=== PATIENT | female | born 1970 | race Caucasian/White ===

== ENCOUNTER 2017-07-06 17:45 | Emergency (ER) | payer OTHER, SELFPAY ==
[2017-07-06 17:48] VITALS: BP 151/93; PULSE 67; RESP 18; TEMP 36.6; O2SAT 100; BMI 26.6
--- NOTE | 2017-07-06 18:35 | RAD_ITS ---
STUDY: X-RAY - RIGHT KNEE REASON FOR EXAM: Female, 47 years old. Pain TECHNIQUE: 4 view(s) of the knee. COMPARISON: 03/05/16. FINDINGS: Knee prothesis in place. No fracture. The soft tissue structures are unremarkable. RAD/Knee 4 or More Views IMPRESSION: Knee prothesis in place. No fracture. Electronically Signed: Rashi Feliz DO at 19:11 EST , Service support ,
--- NOTE | 2017-07-06 20:03 | ED.VISSUMM ---
- ER Visit Summary Date of Service: 07/06/17 Chief Complaint: [Right knee injury] History of Present Illness: The patient is a 47 F [presents to the emergency department after sustaining a knee injury today while at work. 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 Patient unable to bear weight afterwards. Patient states that she had bilateral knee replacements in [address] Mcgarry.] Physical Examination: [HEENT-PERRLA, EOMI. Cranial nerves II through XII grossly intact. TMs clear. Mucous membranes moist. No adenopathy. Cardiovascular-regular rate and rhythm without murmur or ectopy Lungs-clear to auscultation, chest wall stable without crepitus or subcu emphysema Abdomen-normoactive bowel sounds, soft, nontender, no rebound or rigidity, no peritoneal signs. Extremities-intact ?4, normal range of motion, normal pulses, atraumatic]. Right knee-no significant effusion or soft tissue swelling noted. Patient is able to lift the extended leg off of the bed. Patient has some tenderness diffusely about the right knee in the lateral aspect of the knee joint. She is nervously intact distally. She does not tolerate ligamentous exam very well due to pain. When I did attempt to flex her knee there was a pop felt. Test Results: [Rays of the right knee obtained showed no evidence of fracture in the prosthesis appear to be intact.] Emergency Department Course and Treatment: [Be given knee immobilizer and crutches.] Treatment Plan: [She will be given a prescription for Harmony for pain and will be advised to follow-up with Dr. Mcgarry within the next 3-5 days.] Disposition: [Discharged to home in stable condition. Patient advised to return if worsening pain, swelling, or condition should worsen in any way.] Impression: [Right knee sprain with possible internal derangement] This note was generated with [employer] dictation software. It may contain incorrect words, spelling, and punctuation that were not noted in review of the chart prior to signing ED Disposition - Plan for ED Patient: Chief Complaint: Lower Extremity Injury Referrals: Yann Benitez MD [Primary Care Provider] -
--- NOTE | 2017-07-06 20:05 | ED.DEP ---
ED Disposition - Plan for ED Patient: Chief Complaint: Lower Extremity Injury Instructions: ED Sprain Knee Prescriptions: Hydrocodone Bitart/Apap 5-325 [[place] 5/325] 1 - 2 tab PO Q4H PRN PRN 5 Days #20 tab PRN Reason: Pain Referrals: Yann Benitez MD [Primary Care Provider] - Charles Mcgarry MD [STAFF PHYSICIAN] - 3-5 Days
[2017-07-06 20:27] VITALS: BP 132/85; PULSE 80; RESP 18; O2SAT 96
== END 2017-07-06 20:29 | disposition home or self-care (01) ==
PROVIDERS: Emergency Provider Emergency Medicine; Family Provider Family Medicine; PCP Family Medicine
DX: S83.91XA Sprain of unspecified site of right knee, initial encounter (principal); X50.1XXA Overexertion from prolonged static or awkward postures, initial encounter; Y93.F1 Activity, caregiving, bathing; Y92.89 Other specified places as the place of occurrence of the external cause; Y99.0 Civilian activity done for income or pay; Z96.653 Presence of artificial knee joint, bilateral; I10 Essential (primary) hypertension; E78.00 Pure hypercholesterolemia, unspecified; E03.9 Hypothyroidism, unspecified; Z72.0 Tobacco use
CPT/HCPCS: 73564; 99284

== ENCOUNTER 2018-11-17 23:45 | Emergency (ER) | payer BC, SELFPAY ==
[2018-11-17 23:46] VITALS: BP 163/107; PULSE 74; RESP 16; TEMP 36.5; O2SAT 99; BMI 25.4
--- NOTE | 2018-11-18 00:30 | EKG12_ITS ---
Test Reason : NECK PAIN Blood Pressure : / mmHG Vent. Rate : 056 BPM Atrial Rate : 056 BPM P-R Int : 190 ms QRS Dur : 090 ms QT Int : 428 ms P-R-T Axes : 056 040 049 degrees QTc Int : 413 ms Sinus bradycardia Otherwise normal ECG Confirmed by FAUZIA SHI, NAVA ([id number]), senior editor CHINMAY COELLO ([id number]) on 11/20/2018 1:14:56 PM Referred By: BB Confirmed By:NAVA CAGE MD
--- NOTE | 2018-11-18 00:31 | ED.VIS.GEN ---
History of Present Illness Chief Complaint: Other, Pain/Inj Informant: Patient Onset: Days - 2-3 Context: Gradual Onset Timing: Continuous Quality: ache Location: left neck, radiating into LUE Current Severity: Severe Maximum Severity: Severe Worsened by: moving head/neck, especially to left Relieved by: remaining still Associated Symptoms: occasional paresthesias LUE. no cp, sob, weakness. Narrative: Concerned she may have a pinched nerve in her neck. Denies any injury. Symptoms started a couple days ago, topical creams did not help. Then developed more severe pain when she woke up this morning. Denies any preceding stiffness, no fevers, no systemic symptoms or thoracic symptoms. No known history of heart disease although she has multiple risk factors. She does have a history of disc problems that she has required surgery for in her lumbosacral area, including a nerve stimulator that was placed by a specialist at [facility], Dr. Bustos. - Past Medical History (1) Prediabetes Status: Chronic (2) Hypertension Status: Chronic (3) Hyperlipidemia Status: Chronic (4) Chronic back pain greater than 3 months duration Status: Chronic Past Medical History - Allergies and Home Meds Allergies/Adverse Reactions: Allergies adhesive Allergy (Verified 11/18/18 00:03) Unknown Latex, Natural Rubber Allergy (Verified 11/18/18 00:03) Unknown NSAIDS (Non-Steroidal Anti-Inflamma Allergy (Verified 11/18/18 00:03) Unknown Primary Care Physician: Jose Fishman MD [Primary Care Provider] - Surgical History: - - Gastric bypass surgery. back. spinal stimulator. Lives: Spouse/ Significant Other Smoking Status: Current every day smoker Drugs: None Review of Systems General: Denies: Chills, Fever, Sweats Eyes: Denies: Visual changes - bilaterally, Diplopia ENT: Denies: Rhinorrhea, Sore throat Cardiovascular: Denies: Chest pain, Palpitations Respiratory: Denies: Dyspnea, Cough, Dyspnea on exertion Gastrointestinal: Denies: Abdominal pain, Nausea, Vomiting, Diarrhea, Melena, Hematochezia Genitourinary: Denies: Dysuria, Hematuria, Frequency Musculoskeletal: Reports: Neck pain, Back pain, Extremity Pain Skin: Denies: Rash, Abscess, Wounds Neurological: Reports: Headache - starting to get a migraine, Parasthesia. Denies: Weakness Hematologic: Denies: Easy bruising, Easy bleeding Physical Exam Vital Signs/Narrative: Vital Signs Temp Pulse Resp BP Pulse Ox 11/17/18 23:46 97.7 F L 74 16 163/107 H 99 Inital Vital Signs reviewed: Yes General: Well nourished, Well developed, No Acute Distress Head: Normocephalic, Atraumatic Eyes: Perrl, EOMI ENT: Moist mucous membranes, No rhinorrhea Neck: Supple, No lymphadenopathy, No JVD, - - Tender mildly throughout left paraspinal musculature and into the trapezius. More pain with turning her head to the left than with palpation although all of it is painful. No rashes, swelling, step-off in the midline. No spinal tenderness throughout the spine in its entirety. Normal inspection. Cardiovascular: Regular rate, Regular rhythm, No murmurs, - - Symmetric bilateral 2+/4 radial pulses. Negative for: Tachycardia Respiratory: No distress, CTA bilaterally, Chest nontender. Negative for: Chest tenderness Extremities: Nontender, No edema Skin: Normal color, No rash, No Trauma Neurological: Alert, Oriented x3, Cranial nerves II-XII grossly intact, Normal Strength - Symmetric upper extremities, Normal Sensation, Normal Gait Psychological: Normal affect, Normal Mood Diagnostic/Tx/Re-eval - Rhythm Strip Rhythm Strip: Sinus Rhythm Rate: 56 Ectopy: None - EKG Initial EKG Interpretation: Sinus Rhythm, No Acute Injury Pattern - Medical Decision Making EKG was obtained and is unremarkable, given her symptoms and risk factors. However, I am able to reproduce this pain with palpation and she is able to reproduce it with moving. She has no objective weakness in the left upper extremity. I suspect this is a cervical radiculopathy. No x-rays indicated although persistent symptoms may require MR imaging. She will be treated symptomatically and advised to follow-up and she is comfortable with that plan. Of note, medications given here included Toradol, she declares an allergy but it is not a true allergy, she had gastric bypass and cannot take it orally. ED Disposition - Plan for ED Patient: Disposition: Home or Assisted Living Diagnosis: Cervical radiculopathy, Neck pain, musculoskeletal Instructions: RADICULOPATHY, Cervical Prescriptions: cycloBENZAPRine HCl [Flexeril] 10 mg PO TID PRN #20 tab PRN Reason: Muscle Spasm Prescription Printed Hydrocodone Bitart/Apap 5-325 [[place] 5MG-325MG] 1 tab PO Q4H PRN PRN 2 Days #10 tab PRN Reason: Pain Prescription Printed Referrals: Jose Fishman MD [Primary Care Provider] - (Call for appointment after the weekend)
[2018-11-18] MEDS: Ketorolac 60 MG/2 ML Vial IM (00:43)
[2018-11-18] MEDS: Orphenadrine 60 MG/2 ML Ampul IM (00:44)
[2018-11-18] MEDS: Morphine 4 MG/ML Syringe IM (00:44)
[2018-11-18 00:49] VITALS: BP 167/95; PULSE 49; RESP 16; O2SAT 98
== END 2018-11-18 01:17 | disposition home or self-care (01) ==
PROVIDERS: Emergency Provider Emergency Medicine; Family Provider Family Medicine; PCP Family Medicine
DX: M54.12 Radiculopathy, cervical region (principal); M54.2 Cervicalgia; I10 Essential (primary) hypertension; E78.5 Hyperlipidemia, unspecified; M54.9 Dorsalgia, unspecified; G89.29 Other chronic pain; R73.03 Prediabetes; F17.200 Nicotine dependence, unspecified, uncomplicated; Z98.84 Bariatric surgery status; Z88.6 Allergy status to analgesic agent
CPT/HCPCS: 93005; 96372; 99282

== ENCOUNTER 2018-12-02 21:43 | Emergency (ER) | payer BC, SELFPAY ==
[2018-12-02 21:44] VITALS: BP 162/94; PULSE 83; RESP 16; TEMP 36.6; O2SAT 100; BMI 27.1
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
[2018-12-02] MEDS: Orphenadrine 60 MG/2 ML Ampul IM (22:34)
[2018-12-02] MEDS: Morphine 4 MG/ML Syringe IM (22:35)
[2018-12-02] MEDS: Ketorolac 60 MG/2 ML Vial IM (22:35)
[2018-12-02] MEDS: Gabapentin 600 MG Tablet PO (22:45)
[2018-12-02 22:56] VITALS: BP 148/60; PULSE 78; RESP 18; O2SAT 95
== END 2018-12-02 22:57 | disposition home or self-care (01) ==
PROVIDERS: Emergency Provider Emergency Medicine; Family Provider Family Medicine; PCP Family Medicine
DX: M54.12 Radiculopathy, cervical region (principal); F17.200 Nicotine dependence, unspecified, uncomplicated; Z98.84 Bariatric surgery status; G89.29 Other chronic pain; M54.9 Dorsalgia, unspecified; E78.5 Hyperlipidemia, unspecified; I10 Essential (primary) hypertension; R73.03 Prediabetes; I89.0 Lymphedema, not elsewhere classified
CPT/HCPCS: 99283

== ENCOUNTER 2019-01-13 13:23 | Emergency (ER) | payer BC, SELFPAY ==
[2019-01-13 13:24] VITALS: BP 159/104; PULSE 92; RESP 16; TEMP 36.1; O2SAT 98; BMI 26.3
--- NOTE | 2019-01-13 14:02 | ED.VIS.UPPEX ---
History of Present Illness Informant: Patient, Significant Other Mechanism/Context: - - No inciting injury or trauma. Negative for: Injury Onset: Month(s) - 1 Context: Gradual Onset Timing: Continuous Quality of Pain: Stabbing Current Severity: Severe Maximum Severity: Severe Worsened by: Movement Relieved by: Nothing Associated Symptoms: Negative for: Parasthesia, Weakness, Loss of Funtion Narrative: 48-year-old female [id number] presents to the emergency department with pain in her left wrist. Patient has chronic pain and is in pain management. She is on Neurontin. She has a spinal cord stimulator that is currently nonfunctioning and she is due to have surgery to have a new battery placed in this next week. She is having pain in her left wrist. She states is from carpal tunnel syndrome. She had an EMG done at [facility] recently and told it was mild carpal tunnel syndrome. She is wearing a splint. She is requesting something stronger for pain and Tylenol. She states that she is allergic to all anti-inflammatories. She is not having any numbness or tingling, she has not had any trauma or injury. She denies any other review of systems. Tetanus Immunization: Unknown Prior similar symptoms: Yes Recent Illness/Hospitalization: No <Pancho Rangel - Last Filed: 01/13/19 14:16> <Roberto Huffman - Last Filed: 01/13/19 17:28> Chief Complaint: Upper Extremity Injury Past Medical History Prior records reviewed: Yes Past Medical History: - - Hypothyroidism, hypertension, chronic pain, type 2 diabetes Surgical History: - - Gastric bypass surgery. back. spinal stimulator. Smoking Status: Current every day smoker <Pancho Rangel - Last Filed: 01/13/19 14:16> <Roberto Huffman - Last Filed: 01/13/19 17:28> - Allergies and Home Meds Allergies/Adverse Reactions: Allergies adhesive Allergy (Verified 01/13/19 13:24) Unknown Latex, Natural Rubber Allergy (Verified 01/13/19 13:24) Unknown NSAIDS (Non-Steroidal Anti-Inflamma Allergy (Verified 01/13/19 13:24) Unknown Primary Care Physician: Jose Fishman MD [Primary Care Provider] - Review of Systems All systems negative except as indicated General: Denies: Chills, Fever Musculoskeletal: Reports: Extremity Pain <ClairePancho Mixon Last Filed: 01/13/19 14:16> Physical Exam Vital Signs/Narrative: Vital Signs Temp Pulse Resp BP Pulse Ox 01/13/19 13:24 96.9 F L 92 16 159/104 H 98 Inital Vital Signs reviewed: Yes Left Wrist: - - Normal inspection of the left wrist. No swelling, redness, signs of trauma, warmth, or lymphatic streaking. No visualized palpable cords of the left upper extremity. She does not have any bony tenderness of the distal radius or ulna, of her hand, forearm or elbow. She is able to fully flex and extend the wrist actively. No weakness. Normal radial pulse. Normal capillary refill and sensation of all 5 fingers. Left Hand: Negative for: Abrasion, Contusion, Deformity, Edema, Hematoma, Limited ROM Left Finger: Negative for: Abrasion, Contusion, Deformity, Edema, Hematoma, Limited ROM <ClairePancho - Last Filed: 01/13/19 14:16> Diagnostic/Tx/Re-eval - Medical Decision Making Reviewed patient's records, she has a diagnosis of carpal tunnel syndrome, she has an upcoming appointment with a hand surgeon Dr. Mcgarry at [facility] next week. I will give her a course of steroids for her pain but she is in pain management already on neurontin and I discussed with her that I would not be prescribing her narcotics. She is requesting a new splint because she currently has a thumb spica splint and she does not want her thumb to be immobilized. She will be given a cock-up AP wrist splint. Advised rest ice elevation and follow-up as scheduled next week with her surgeon. <ClairePancho - Last Filed: 01/13/19 14:16> - Medical Decision Making I supervised the PA and have performed my own pertinent history and physical. Results and treatment plan were discussed. HPI: Patient reports that she has left wrist pain. She recently had nerve conduction studies which shows she has carpal tunnel syndrome. She is in a thumb spica splint. She reports that she is taking Tylenol without relief. However, she is also in pain management. She already has an appointment to see Dr. Mcgarry for this next week. PE: Left hand: Wrist is in a thumb spica splint. There is no erythema, warmth, induration, or fluctuance to suggest infection. She has mild diffuse tenderness palpation over her wrist. She does have a positive Tinel's sign. There is no wasting of the muscles. Emergency Department course: Discussed the patient with her being in pain management she will not have any opiate-based medications added to her regimen. She will be placed in a Velcro wrist splint. Treatment Plan: Patient will be discharged instructions to follow-up with Dr. Mcgarry as previously scheduled. She will have a Medrol Dosepak added in hopes that this will help with her inflammation and pain. This note was generated with [employer] software. It may contain incorrect words, spelling, and punctuation that were not noted in review of the chart prior to signing. <Roberto Huffman - Last Filed: 01/13/19 17:28> ED Disposition <Pancho Rangel - Last Filed: 01/13/19 14:16> <Roberto Huffman - Last Filed: 01/13/19 17:28> - Plan for ED Patient: Disposition: Home or Assisted Living Diagnosis: Carpal tunnel syndrome of left wrist Instructions: What Is Carpal Tunnel Syndrome (CTS)? Prescriptions: MethylPREDNISolone DosePak [Medrol DosePak] 4 mg PO UD #1 box Prescription Printed Referrals: Jose Fishman MD [Primary Care Provider] -
[2019-01-13] MEDS: predniSONE 20 MG Tablet 40 MG PO (14:32)
== END 2019-01-13 14:35 | disposition home or self-care (01) ==
PROVIDERS: Emergency Provider Physician Assistant Medical; Family Provider Family Medicine; PCP Family Medicine
DX: G56.02 Carpal tunnel syndrome, left upper limb (principal); E03.9 Hypothyroidism, unspecified; E11.9 Type 2 diabetes mellitus without complications; I10 Essential (primary) hypertension; G89.29 Other chronic pain; F17.200 Nicotine dependence, unspecified, uncomplicated; Z88.6 Allergy status to analgesic agent; Z98.84 Bariatric surgery status; Z91.040 Latex allergy status
CPT/HCPCS: 99283

== ENCOUNTER 2019-02-01 09:02 | Emergency (ER) | payer OTHER, BC, SELFPAY ==
[2019-02-01 09:04] VITALS: BP 140/88; PULSE 76; RESP 17; TEMP 36.5; O2SAT 100; BMI 27.0
--- NOTE | 2019-02-01 09:17 | ED.DCSUM_ITS ---
- ER Visit Summary Date of Service: 02/01/19 Chief Complaint: Left wrist injury History of Present Illness: The patient is a 48 F who presents emergency department after tripping on a cord while at work sustaining a FOOSH injury to the left wrist. She has had some issues with this left wrist in the past and has been seeing Dr. Mcgarry for it. She was diagnosed with mild carpal tunnel. She is got a cervical radiculopathy. She also states that she is in pain management and is allergic to all anti-inflammatories. She was seen here middle of December with pain in that left wrist was put on Medrol. Physical Examination: Afebrile vital signs stable Gen: Well-nourished well-developed Head: Normocephalic atraumatic Eyes: Perrl EOMI ENT: TMs clear no rhinorrhea moist mucous membranes Neck: Supple no lymphadenopathy no JVD nontender CVS: Regular rate rhythm no murmurs normal S1-S2 Respiratory: No distress clear to auscultation bilaterally chest nontender Abdomen: Soft nontender nondistended normal bowel sounds no masses Back: Nontender Extremity: Diffusely tender over the left wrist. There is no deformity. No significant swelling. Neurovascular intact distal. She is able to pronate and supinate no edema Skin: Normal color no rash Neuro: alert orientated ?3 CN II-XII intact normal strength sensation Psych: Normal affect normal mood Test Results: Left wrist films were obtained. These were negative for fracture. Emergency Department Course and Treatment: Patient will be treated conservatively at home. She is to follow-up with conservative treatment. She has a splint that she was given her last visit which would be appropriate for her to use today. Impression: 1. Left wrist sprain This note was generated with [employer] dictation software. It may contain incorrect words, spelling, and punctuation that were not noted in review of the chart prior to signing ED Disposition - Plan for ED Patient: Disposition: Home or Assisted Living Instructions: Wrist Sprain Referrals: [facility] [NON-STAFF] - (call today to arrange follow up)
--- NOTE | 2019-02-01 09:25 | RAD_ITS ---
STUDY: X-RAY - LEFT WRIST REASON FOR EXAM: Female, 48 years old. Pain following injury. TECHNIQUE: 3 view(s) of the wrist were obtained. COMPARISON: None. FINDINGS: Normal visualized distal radius and ulna. Normal radiocarpal articulation. Normal distal radioulnar articulation. Normal carpal bones. Normal carpal articulations. Normal carpometacarpal articulation of the thumb. Normal second through fifth carpometacarpal articulations. Normal visualized metacarpal bones. The soft tissue structures are unremarkable. RAD/Wrist min 3 Views IMPRESSION: Normal x-ray examination of the wrist. Electronically Signed: Gume Cazares, at 9:47 EDT , Service support ,
[2019-02-01 10:16] VITALS: BP 137/82
== END 2019-02-01 10:17 | disposition home or self-care (01) ==
PROVIDERS: Emergency Provider Emergency Medicine; Family Provider Family Medicine; PCP Family Medicine
DX: S63.502A Unspecified sprain of left wrist, initial encounter (principal); W22.8XXA Striking against or struck by other objects, initial encounter; Y93.9 Activity, unspecified; Y92.89 Other specified places as the place of occurrence of the external cause; Y99.0 Civilian activity done for income or pay; I10 Essential (primary) hypertension; E78.00 Pure hypercholesterolemia, unspecified; M54.12 Radiculopathy, cervical region; G89.29 Other chronic pain; Z72.0 Tobacco use
CPT/HCPCS: 73110; 99282

== ENCOUNTER 2019-02-06 23:41 | Emergency (ER) | payer BC, SELFPAY ==
[2019-02-06 23:42] VITALS: BP 146/88; PULSE 95; RESP 20; TEMP 36.7; O2SAT 100; BMI 27.3
[2019-02-07 00:40] VITALS: O2SAT 94
--- NOTE | 2019-02-07 01:31 | ED.VIS.GEN ---
History of Present Illness Chief Complaint: Cough Narrative: Patient presenting with cough and congestion for 48 hours she has no fever chills shortness of breath she is been using her albuterol at home. Her cough is slightly productive. She tells me she feels the same way she usually does when she has bronchitis. Past Medical History - Allergies and Home Meds Allergies/Adverse Reactions: Allergies adhesive Allergy (Verified 02/07/19 00:15) Unknown Latex, Natural Rubber Allergy (Verified 02/07/19 00:15) Unknown NSAIDS (Non-Steroidal Anti-Inflamma Allergy (Verified 02/07/19 00:15) Unknown Primary Care Physician: Jose Fishman MD [Primary Care Provider] - Past Medical History: - - , Diabetes, history of bronchitis Surgical History: - - Gastric bypass surgery. back. spinal stimulator. Smoking Status: Current every day smoker Review of Systems All systems negative except as indicated General: Denies: Fever Cardiovascular: Denies: Chest pain Respiratory: Reports: Dyspnea, Cough, Sputum. Denies: Dyspnea on exertion, Orthopnea Gastrointestinal: Denies: Nausea, Vomiting Genitourinary: Denies: Hematuria Neurological: Denies: Headache, Weakness Allergy: Denies: Uticaria Physical Exam Vital Signs/Narrative: Vital Signs Temp Pulse Resp BP Pulse Ox 02/06/19 23:42 98.1 F 95 20 H 146/88 H 100 General: Well nourished, No Acute Distress ENT: - - She has rhinorrhea, postnasal drip. Upper airway congestion Cardiovascular: Regular rate, Regular rhythm Respiratory: - - Coarse breath sounds bilaterally some end expiratory wheezing. She does not appear in significant distress she is speaking in full sentences Abdomen: Soft, Nontender Back: Nontender, Normal Inspection Extremities: Nontender Skin: Normal color Neurological: Alert, Oriented x3, Normal Strength Diagnostic/Tx/Re-eval - Medical Decision Making Patient likely has bronchitis, she will be treated with azithromycin. She has an inhaler at home. ED Disposition - Plan for ED Patient: Disposition: Home or Assisted Living Instructions: BRONCHITIS with Wheezing (Adult) Prescriptions: Azithromycin 500 mg PO DAILY #4 tab Prescription Printed Referrals: Jose Fishman MD [Primary Care Provider] -
--- NOTE | 2019-02-07 01:35 | ED.DEP ---
ED Disposition - Plan for ED Patient: Disposition: Home or Assisted Living Instructions: BRONCHITIS with Wheezing (Adult) Prescriptions: Azithromycin 500 mg PO DAILY #4 tab Prescription Printed Referrals: Jose Fishman MD [Primary Care Provider] -
[2019-02-07] MEDS: Azithromycin 250 MG Tablet 500 MG PO (01:47)
[2019-02-07 01:51] VITALS: BP 151/81; PULSE 75; RESP 16; O2SAT 98
== END 2019-02-07 01:56 | disposition home or self-care (01) ==
PROVIDERS: Emergency Provider Emergency Medicine; Family Provider Family Medicine; PCP Family Medicine
DX: J40 Bronchitis, not specified as acute or chronic (principal); R06.2 Wheezing; E11.9 Type 2 diabetes mellitus without complications; F17.200 Nicotine dependence, unspecified, uncomplicated; Z88.6 Allergy status to analgesic agent; Z91.040 Latex allergy status; Z98.84 Bariatric surgery status
CPT/HCPCS: 99283

== ENCOUNTER 2019-03-09 23:57 | Emergency (ER) | payer BC, SELFPAY ==
[2019-03-09 23:58] VITALS: BP 136/86; PULSE 65; RESP 16; TEMP 36.5; O2SAT 100; BMI 26.2
--- NOTE | 2019-03-10 00:43 | ED.VIS.GEN ---
History of Present Illness Chief Complaint: Dental Narrative: Patient is a 48-year-old female who presents with dental pain. She complains of 1 day of right upper dental pain which she rates as severe. No fevers nausea vomiting facial or jaw swelling. No speech difficulty. She does not currently have a dentist. Past Medical History - Allergies and Home Meds Allergies/Adverse Reactions: Allergies adhesive Allergy (Verified 03/09/19 23:58) Unknown Latex, Natural Rubber Allergy (Verified 03/09/19 23:58) Unknown NSAIDS (Non-Steroidal Anti-Inflamma Allergy (Verified 03/09/19 23:58) Unknown Primary Care Physician: Jose Fishman MD [Primary Care Provider] - Past Medical History: - - Diabetes, hypertension, hyperlipidemia, hypothyroidism Surgical History: - - Gastric bypass surgery. back. spinal stimulator. Smoking Status: Current every day smoker Review of Systems All systems negative except as indicated ENT: Reports: - - Dental pain Physical Exam Vital Signs/Narrative: Vital Signs Temp Pulse Resp BP Pulse Ox 03/09/19 23:58 97.7 F L 65 16 136/86 H 100 Inital Vital Signs reviewed: Yes General: Well nourished Head: Normocephalic Eyes: EOMI ENT: - - Widespread dental decay which is severe, multiple prior dental extractions, focal tenderness on percussion of the right maxillary second premolar no focal abscess amenable to incision and drainage, clear speech, no trismus, no facial or jaw swelling Diagnostic/Tx/Re-eval - Medical Decision Making Patient was given first dose of penicillin here as well as a prescription for the same as well as a list of local dental clinics. Patient understands to return for new or worsening symptoms otherwise to follow-up with dentistry and was discharged. ED Disposition - Plan for ED Patient: Disposition: Home or Assisted Living Diagnosis: Pain, dental Instructions: Dental Pain Prescriptions: Penicillin V Potassium 500 mg PO 4X/DAY #40 tab Prescription Printed Referrals: Jose Fishman MD [Primary Care Provider] -
[2019-03-10] MEDS: Penicillin Vk 250 MG Tablet 500 MG PO (01:13)
== END 2019-03-10 01:13 | disposition home or self-care (01) ==
PROVIDERS: Emergency Provider Emergency Medicine; Family Provider Family Medicine; PCP Family Medicine
DX: K02.9 Dental caries, unspecified (principal); I10 Essential (primary) hypertension; E11.9 Type 2 diabetes mellitus without complications; E78.5 Hyperlipidemia, unspecified; E03.9 Hypothyroidism, unspecified; F17.200 Nicotine dependence, unspecified, uncomplicated; Z79.84 Long term (current) use of oral hypoglycemic drugs; Z79.899 Other long term (current) drug therapy
CPT/HCPCS: 99283

== ENCOUNTER 2019-04-21 20:48 | Emergency (ER) | payer BC, SELFPAY ==
[2019-04-21 20:49] VITALS: BP 144/93; PULSE 92; RESP 22; TEMP 36.9; O2SAT 100; BMI 27.0
[2019-04-21 21:00] VITALS: O2SAT 98
--- NOTE | 2019-04-21 21:14 | ED.DCSUM_ITS ---
- ER Visit Summary Date of Service: 04/21/19 Chief Complaint: [Cough] History of Present Illness: The patient is a 48 F [ presents the emergency cough and congestion x5 days.] Patient states she has a history of asthma and she is been wheezing. Patient not bringing anything up productive with the cough. She complains of pain in her chest with cough and deep breath. She has been around multiple folks with similar illnesses. Patient denies recent travel or surgery. She has history of hypertension, asthma, high cholesterol, and obesity. Has had prior gastric bypass surgery. Physical Examination: [HEENT-PERRLA, EOMI. Cranial nerves II through XII grossly intact. TMs clear. Mucous membranes moist. No adenopathy. Cardiovascular-regular rate and rhythm without murmur or ectopy Lungs-breath sounds bilaterally with some faint expiratory wheezes noted bilaterally. Mild tachypnea. No accessory muscle use or retractions. No conversational dyspnea. Abdomen-normoactive bowel sounds, soft, nontender, no rebound or rigidity, no peritoneal signs. Extremities-intact ?4, normal range of motion, normal pulses, atraumatic] Test Results: [Chest x-ray ordered and on my interpretation I do not appreciate anything acute as far as infiltrate. She is got some hyperinflation.] Emergency Department Course and Treatment: [Given a DuoNeb aerosol and started on prednisone.] Treatment Plan: [Patient will be started on doxycycline, prednisone, and Tessalon Perles. To use her nebulizer or MDI every 4 hours as needed for wheezing.] Disposition: [Discharged home in stable condition.] Impression: [Asthmatic bronchitis] This note was generated with [employer] dictation software. It may contain incorrect words, spelling, and punctuation that were not noted in review of the chart prior to signing ED Disposition - Plan for ED Patient: Referrals: Jose Fishman MD [Primary Care Provider] -
--- NOTE | 2019-04-21 21:17 | RAD_ITS ---
STUDY: X-RAY CHEST REASON FOR EXAM: Female, 48 years old. Cough. TECHNIQUE: PA and lateral chest. COMPARISON: None. FINDINGS: The lungs are clear and expanded. There is no demonstrated pleural abnormality. Normal size heart. Normal mediastinum and ankit. Normal visualized pulmonary arteries. Normal visualized aortic arch and descending thoracic aorta. Neurostimulator wires terminate at the T8 level. Soft tissues and bony structures are otherwise unremarkable. RAD/Chest PA and Lateral IMPRESSION: No acute findings. Electronically Signed: Marylou Dasilva MD at 22:17 EST Tel , Service support ,
[2019-04-21 21:27] VITALS: PULSE 78; RESP 16; O2SAT 96
[2019-04-21] MEDS: Ipratropium/Albuterol Sulfate 3 ML AMPUL.NEB INHALATION (21:27)
[2019-04-21] MEDS: predniSONE 20 MG Tablet 40 MG PO (21:30)
--- NOTE | 2019-04-21 21:30 | ED.DEP ---
ED Disposition - Plan for ED Patient: Instructions: BRONCHITIS with Wheezing (Adult) Prescriptions: Prednisone [Deltasone] 20 mg PO BID #10 tab Prescription Printed Doxycycline 100 mg PO BID #20 cap Prescription Printed Benzonatate [Tessalon Perle] 200 mg PO TID PRN PRN #20 cap PRN Reason: Cough Prescription Printed Referrals: Jose Fishman MD [Primary Care Provider] - 3-5 Days
--- NOTE | 2019-04-21 21:43 | EKG12_ITS ---
Test Reason : CP Blood Pressure : / mmHG Vent. Rate : 082 BPM Atrial Rate : 082 BPM P-R Int : 174 ms QRS Dur : 082 ms QT Int : 360 ms P-R-T Axes : 076 040 058 degrees QTc Int : 420 ms Normal sinus rhythm Normal ECG Confirmed by TATE SHI, TUCKER ([id number]), editor managing newspaper LICHA WILLOUGHBY ([id number]) on 04/22/2019 12:07:09 PM Referred By: THO Confirmed By:LYNDSAY YBARRA MD
[2019-04-21 21:50] VITALS: PULSE 87; RESP 18; O2SAT 97
== END 2019-04-21 21:51 | disposition home or self-care (01) ==
LOC: ED 21:18
PROVIDERS: Emergency Provider Emergency Medicine; Family Provider Family Medicine; PCP Family Medicine
DX: J45.909 Unspecified asthma, uncomplicated (principal); I10 Essential (primary) hypertension; E78.00 Pure hypercholesterolemia, unspecified; Z98.84 Bariatric surgery status; Z72.0 Tobacco use
CPT/HCPCS: 71046; 93005; 94640; 99251; 99283; G0463

== ENCOUNTER 2019-10-25 08:33 | Day surgery (SDC) | payer BC, SELFPAY ==
--- NOTE | 2019-10-23 08:29 | PCM.HP.OB ---
- Problem List (1) Endometrial thickening on ultrasound Status: Acute History Date of Admission: 10/25/19 History of this : This is a 49 year-old with thickened endometrium on US. Medical History: Medical History (Last Updated 10/23/19 @ 08:[address] Millie Biggs, DO) Asthma J45.909 DDD (degenerative disc disease), lumbar M51.36 Depression F32.9 Diabetes E11.9 Hypothyroid E03.9 Postoperative ileus K91.89, K56.7 Surgical History: Surgical History (Last Updated 10/23/19 @ 08:[address] Millie Biggs, DO) H/O foot surgery Z98.890 H/O hernia repair Z98.890, Z87.19 H/O laminectomy Z98.890 History of carpal tunnel repair Z98.890 History of gastric bypass Z98.84 History of total knee replacement Z96.659 Hx of tonsillectomy Z90.89 Allergies adhesive Allergy (Verified 10/18/19 09:37) Unknown Latex, Natural Rubber Allergy (Verified 10/18/19 09:37) Unknown NSAIDS (Non-Steroidal Anti-Inflamma Allergy (Verified 10/18/19 09:37) Unknown Home Medications: Home Medications Amitriptyline HCl 25 mg pe PO QHS 03/05/16 Atorvastatin Calcium [Lipitor] 40 mg PO QHS 03/05/16 Ferrous Sulfate 325 mg PO DAILY 03/05/16 Levothyroxine [Synthroid] 125 mcg PO DAILY 03/05/16 Metoprolol Tartrate [Lopressor (Beta Andrea)] 25 mg PO DAILY 03/05/16 Albuterol Sulfate [Ventolin Hfa] 1 puff INHALATION DAILY PRN 07/06/17 Cholecalciferol (Vitamin D3) [Vitamin D3] 5,000 unit PO DAILY 07/06/17 Cyanocobalamin (Vitamin B-12) [Vitamin B-12] 1,000 mcg PO DAILY 07/06/17 Sertraline HCl [Zoloft] 50 mg PO DAILY 07/06/17 Sumatriptan 100 mg PO PRN PRN 07/06/17 Topiramate [Topamax Sprinkle] 25 mg PO BID 07/06/17 metFORMIN HCl [Glucophage] 500 mg PO DAILY 07/06/17 Mometasone/Formoterol [Dulera 200 Mcg/5 Mcg Inhaler] 2 inh INHALATION Q4H PRN PRN 04/21/19 Acetaminophen [Tylenol Extra Strength] 1,000 mg PO Q6H PRN PRN 10/18/19 Biotin 5 mg PO DAILY 10/18/19 Calcium Citrate/Vitamin D3 [Calcium Citrate-Vit D3 Caplet] 1 tab PO BID 10/18/19 Duloxetine Hcl [Cymbalta] 30 mg PO DAILY 10/18/19 Multivitamin with Minerals [Multiple Vitamin] 1 ea PO BID 10/18/19 Polyethylene Glycol 3350 [Miralax] 17 gm PO DAILY PRN 10/18/19 Triamcinolone 0.1% Cream [Kenalog] 1 applic TOPICAL TID 10/18/19 metroNIDAZOLE 0.75% [Metrogel] 70 applic TOPICAL BID 10/18/19 Smoking Status: Current every day smoker History Past Pregnancies: Past Pregnancies Delivery Date Name GA/ Weeks Outcome Route Wt Infant Sex Labor Length Anesthesia Delivery Location Provider FOB Review of Systems Constitutional: Denies: Chills, Fever HEENT: Denies: Head Aches Cardiovascular: Denies: Chest Pain Respiratory: Denies: Cough, Shortness of Breath Gastrointestinal: Denies: Nausea, Vomiting Genitourinary: Denies: Dysuria Hematologic/ Lymphatic: Denies: Easy Bruising, Easy Bleeding Physical Exam General: Alert, No apparent distress HEENT: Atraumatic Cardiovascular: Regular rate Lungs: Clear to auscultation Abdomen: Soft, Non-Distended Neurological: Neuro grossly intact Assessment/Plan All Active Problems Endometrial thickening on ultrasound (Acute) This is a 49 year-old who presented to the ER with pelvic pain and a CT scan was performed. The CT scan showed an enlarged uterus. She followed up in the office and a pelvic ultrasound was obtained. Pelvic ultrasound shows the endometrial complex measuring 22.8 mm in thickness. Attempted an in office endometrial biopsy but unable to complete biopsy given cervical stenosis. Discussed reattempt at biopsy after Cytotec. The patient declines. Discussed option for a hysteroscopy D&C and a possible polypectomy. After discussion of risk, benefits, alternatives to surgery the patient desires to proceed. Consent was signed.
[2019-10-25] VITALS (12 sets, daily range): BP systolic 129–167; BP diastolic 70–85; PULSE 37–57; RESP 14–16; TEMP 35.9–37.1; O2SAT 97–100; BMI 26.4
[2019-10-25 09:01] LABS: Internal QC Validated? YES +Cl - CLEAR BKGD; Pregnancy, Urine Negative Negative
[2019-10-25 09:09] LABS: Hematocrit 45.1 % (37-47); Hemoglobin 13.5 g/dL (12.0-15.0); Mean Corp Hgb Conc 29.9 g/dL (32-36); Mean Corpuscular Hgb 26.9 pg (27.0-32.0); Mean Platelet Vol. 10.9 fl (6.2-12.0); Platelet Count 271 K/mm3 (150-450); RBC Distribution Width CV 13.7 % (11.6-14.6); RBC Distribution Width SD 44.7 fl (35.1-43.9); Red Blood Count 5.01 M/mm3 (4.2-5.4); White Blood Count 5.8 K/mm3 (4.4-11.0)
[2019-10-25 09:31] LABS: Bedside Glucose 88 mg/dL (70-110)
--- NOTE | 2019-10-25 10:15 | EMB_PTH ---
PATIENT: HARRY MCCRARY LOC: [facility] – [place] U#:[id number] AGE/SX: 49/F ROOM: RE10/25/[address]: Dr. Millie Biggs DO : 1970 BED: DIS: 10/25/2019 SPEC #: [id number] RECD: 10/25/19 14:40 STATUS: HAZEL REAkhil #: [id number] EMILIA: 10/25/19 10:[address]: Millie Biggs DEPT: SURGICAL PATHOLOGY RECD BY: Mariana Doran ENTERED: 10/26/19 09:36 SP TYPE: ENDOM BX/C OTHR DR: Dr. Jose Fishman MD Tissues: Endometrium, NOS Procedures: Surgery Specimen Level IV HEADER OPERATION: Hysteroscopy, D & C PRE-OP DIAGNOSIS: Thickened endometrium on ultrasound TISSUE SUBMITTED: Endometrial curettings MICROSCOPIC DIAGNOSIS Endometrium, curettings: Simple hyperplasia without atypia. AM:carlton 10/29/19 COMMENT Case has been reviewed in consultation with Dr. Castellano who concurs with the above diagnosis. IDC:BART MICROSCOPIC DESCRIPTION Slides are reviewed. GROSS DESCRIPTION Received in fixative is one container labeled with the patient's name and designated endometrial curettings. The specimen consists of multiple fragments of hemorrhagic soft tissue that in aggregate measure 2.5 x 2 x 0.1 cm. The specimen is totally submitted in one cassette. / BART:carlton 10/26/19 TC:5 CPT: 15320
--- NOTE | 2019-10-25 11:11 | DCINST_ITS ---
Discharge Diet: No Restrictions Discharge Activity: May Shower May resume sexual activity in: 1 week Weight Bearing Status: Weight bearing as tolerated Lifting Restrictions: No lifting restrictions Call your doctor if you observe: Fever of 101 or Higher, Inability to urinate, Inability to have a bowel movement, Using more than one pad per hour, Dizziness, Fainting spells, Chest pain, Increased palpitations (irregular heartbeat), Calf discomfort, Uncontrolled pain Allergies/Adverse Reactions: Allergies adhesive Allergy (Verified 10/25/19 08:42) Unknown Latex, Natural Rubber Allergy (Verified 10/25/19 08:42) Unknown NSAIDS (Non-Steroidal Anti-Inflamma Allergy (Verified 10/25/19 08:42) Unknown Medications to take at Discharge Amitriptyline HCl 25 mg pe PO QHS 03/05/16 Atorvastatin Calcium [Lipitor] 40 mg PO QHS 03/05/16 Ferrous Sulfate 325 mg PO DAILY 03/05/16 Levothyroxine [Synthroid] 125 mcg PO DAILY 03/05/16 Metoprolol Tartrate [Lopressor (Beta Andrea)] 25 mg PO DAILY 03/05/16 Albuterol Sulfate [Ventolin Hfa] 1 puff INHALATION DAILY PRN 07/06/17 Cholecalciferol (Vitamin D3) [Vitamin D3] 5,000 unit PO DAILY 07/06/17 Cyanocobalamin (Vitamin B-12) [Vitamin B-12] 1,000 mcg PO DAILY 07/06/17 Sertraline HCl [Zoloft] 50 mg PO DAILY 07/06/17 Sumatriptan 100 mg PO PRN PRN 07/06/17 Topiramate [Topamax Sprinkle] 25 mg PO BID 07/06/17 metFORMIN HCl [Glucophage] 500 mg PO DAILY 07/06/17 Mometasone/Formoterol [Dulera 200 Mcg/5 Mcg Inhaler] 2 inh INHALATION Q4H PRN PRN 04/21/19 Acetaminophen [Tylenol Extra Strength] 1,000 mg PO Q6H PRN PRN 10/18/19 Biotin 5 mg PO DAILY 10/18/19 Calcium Citrate/Vitamin D3 [Calcium Citrate-Vit D3 Caplet] 1 tab PO BID 10/18/19 Duloxetine Hcl [Cymbalta] 60 mg PO DAILY 10/18/19 Multivitamin with Minerals [Multiple Vitamin] 1 ea PO BID 10/18/19 Polyethylene Glycol 3350 [Miralax] 17 gm PO DAILY PRN 10/18/19 Triamcinolone 0.1% Cream [Kenalog] 1 applic TOPICAL TID 10/18/19 metroNIDAZOLE 0.75% [Metrogel] 70 applic TOPICAL BID 10/18/19 Primary Care Physician: Jose Fishman MD [Primary Care Provider] - Test Results: Test results from this visit will be discussed in further detail at your follow- up appointment, if applicable. Please Follow Up With: Millie Biggs DO When: 1-2 weeks
--- NOTE | 2019-10-25 11:12 | PCM.OPRPT ---
Problem List (1) Endometrial thickening on ultrasound Status: Acute Report of Operation Date of Procedure: 10/25/19 Pre-Operative Diagnosis: Endometrial thickening on pelvic US Post-Operative Diagnosis: As above, significant cervical stenosis and scarring Surgery/Procedure Performed:: Hysteroscopy D&C Description of Surgical Findings:: The cervix was significantly stenotic and scarred. The uterus sounded to 9 cm. Unable to advance the hysteroscope to the fundus of the uterus given stenosis and scarring. Special Medications: None Specimen's removed: Endometrial curettings Drains: None Estimated Blood Loss (mL): < 10 cc Fluids Replaced: Fluid deficit was 190 cc Description of Procedure: She was taken to the operating room where MAC anesthesia was found to be adequate. She was prepped and draped in the dorsal lithotomy position in yellowfin stirrups. A weighted speculum was placed in the vagina to expose the cervix. The anterior lip of the cervix was grasped with a single-tooth tenaculum. The cervix was noted to be significantly stenotic. The cervix was serially dilated to accommodate the hysteroscope. The cervical canal was visualized to be significantly stenotic and scarred. The cervical canal also tortuous, and therefore was difficult to pass the hysteroscope into the fundus of the uterus after several attempts. The hysteroscope was then removed after was unable to be advanced to the fundus of the uterus. The uterus was sounded to 9 cm. A sharp curettage was performed. Endometrial curettings were sent to pathology for review. All instruments were removed from the vagina. Vaginal sweep was performed. Bleeding was hemostatic. Instrument sponge counts were correct. Patient was taken recovery room in stable condition. Grafts/Implants Used: None - Complications None - Admit VTE Documentation VTE Present on Admission: No VTE Mechan Device Prophylaxis: SCD's
--- NOTE | 2019-10-25 15:06 | PCM.HPOB.BLA ---
- Problem List (1) Endometrial thickening on ultrasound Status: Acute History and Physical Date of Admission: 10/25/19 DATE OF SERVICE: October 11, 2019 ? PROBLEM:?Thickened endometrium on pelvic US ? DIAGNOSIS:?Thickened endometrium ? PAST SURGICAL HISTORY:? PAST SURGICAL HISTORY PAST SURGICAL HISTORY Procedure Laterality Date ? MIDLINE INSERTION/CONSULT ? 01/09/2014 ? gastric bypass ? MIDLINE INSERTION/CONSULT ? 01/11/2014 ? post op ileus s/p gastric bypass ? PAST SURGICAL HISTORY OF ? ? ? remove ingrowen toe nail left ?big toe ? PAST SURGICAL HISTORY OF ? 08/2010 ? L4 and L5 laminectomies with bilateral foraminotomies at ?L4 and L5, and diskectomy at the L4-5 and L5-S1 levels for the ?purposes of decompression. ? PAST SURGICAL HISTORY OF ? - ? neuro stim ? PAST SURGICAL HISTORY OF ? ? ? left foot surgery, benign nodules ? PAST SURGICAL HISTORY OF ? ? ? Lumbar, shoulder and knee pain injections- multiple. ? REMOVAL OF TONSILS,<12 Y/O ? ? ? Tonsillectomy ? REPAIR INCIS HERNIA W MESH ? 05-21-11 ? REPAIR UMBILICAL TEA,5+Y/O,REDUC ? 05/21/2011 ? Hernia repair, umbilical >5yr ? REVISE MEDIAN N/CARPAL TUNNEL SURG ? 06-14-14 ? Carpal tunnel decomp, left ? REVISE MEDIAN N/CARPAL TUNNEL SURG Right 09/19/2015 ? Carpal tunnel decomp ? TOTAL KNEE REPLACEMENT Bilateral 01/08/2015 ? Knee replacement, total ? PAST MEDICAL HISTORY:? PAST MEDICAL HISTORY PAST MEDICAL HISTORY Diagnosis Date ? DDD (degenerative disc disease), lumbar ? ? Depression ? ? DM (diabetes mellitus) (HCC) ? ? H/O gastric bypass 12/2013 ? Hypothyroid ? ? Mixed hyperlipidemia ? ? Hyperlipidemia ? 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 Lopez, [facility]) ? Unspecified asthma(493.90) ? ? Asthma Unspecified ? Unspecified essential hypertension ? ? Essential hypertension ? SUBJECTIVE:?Has pelvic pain. No bleeding ? SOCIAL HISTORY:? SOCIAL HISTORY Social History ? Tobacco Use ? Smoking status: Current Every Day Smoker ? ? Packs/day: 0.25 ? ? Years: 5.00 ? ? Pack years: 1.25 ? ? Types: Cigarettes ? ? Start date: 09/05/2015 ? Smokeless tobacco: Never Used ? Tobacco comment: Pt began smoking (again) after marital issues; per pt Substance Use Topics ? Alcohol use: No ? ? Frequency: Monthly or less ? ? Drinks per session: 1 or 2 ? ? Binge frequency: Never ? Drug use: No ? 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 Pelvic US: Enlarged uterus Impression ========= Normal appearing anteverted uterus that measures 90 mm x 53 mm x 52 mm. The central endometrial complex measures 22.8 mm in combined thickness. Endometrial pathology cannot be excluded. There is no free fluid visualized in the peritoneal cavity. Right Ovary: Size 32 mm x 35 mm x 20 mm Cyst(s): Size 17 mm x 14 mm x 19 mm. simple cyst. Recommendations Recommend endometrial sampling. Consider repeat ultrasound in 12 months to reassess the simple right ovarian cyst. ? Current Outpatient Medications on File Prior to Visit Medication Sig ? levothyroxine (SYNTHROID) 100 mcg tablet Take 1 tablet by mouth once daily. Take on empty stomach ? metFORMIN (GLUCOPHAGE) 500 mg tablet Take 1 tablet by mouth daily with breakfast. ? topiramate (TOPAMAX) 25 mg capsule Take 1 capsule by mouth twice daily to prevent headaches. ? mometasone-formoterol (DULERA) 200-5 mcg/actuation inhaler Inhale 2 Puffs as instructed twice daily. ? Albuterol Sulfate 0.63 mg/3 mL nebulizer solution Use 1 Ampule via nebulizer every 6 hours as needed. ? ipratropium-albuterol (DUONEB) 0.5 mg-3 mg(2.5 mg base)/3 mL nebu Inhale 3 mL as instructed every 6 hours as needed. ? Cyanocobalamin (VITAMIN B-12) 1,000 mcg TbER Take 1 tablet by mouth once daily. ? polyethylene glycol 3350 (MIRALAX) 17 gram/dose powder 1 scoop mixed in water daily for constipation ? metoprolol succinate ER (TOPROL XL) 25 mg 24 hr tablet Take 0.5 tablets by mouth once daily. ? multivitamin (DAILY-KENZIE) tablet Take 1 tablet by mouth twice daily. ? albuterol HFA (PROAIR HFA) 90 mcg/actuation inhaler Inhale 2 Puffs as instructed every 4 hours as needed. ? ferrous sulfate 325 mg (65 mg iron) tablet Take 1 tablet by mouth daily with breakfast. ? atorvastatin (LIPITOR) 20 mg tablet Take 1 tablet by mouth once daily. ? Cholecalciferol, Vitamin D3, 5,000 unit cap Take 1 capsule by mouth once daily. ? Calcium Citrate-Vitamin D3 200 mg calcium -250 unit tab Take 1 tablet by mouth twice daily. ? biotin 5 mg caspule Take 1 capsule by mouth once daily. ? triamcinolone acetonide (KENALOG) 0.1 % cream APPLY SPARINGLY TO RASH/ITCHING 3 TIMES A DAY ? metroNIDAZOLE (METROGEL) 0.75 % Topical Gel APPLY TO FACE TWICE DAILY ? DULoxetine (CYMBALTA) 30 mg capsule Take 1 capsule by mouth once daily. ? Blood Pressure Cuff - Home Use BLOOD PRESSURE CUFF FOR HOME USE.. (I10) Essential hypertension ? acetaminophen (TYLENOL) 325 mg tablet Take 650 mg by mouth every 6 hours as needed. ? benzonatate (TESSALON PERLE) 100 mg capsule Take 2 capsules by mouth three times daily as needed. (Patient not taking: Reported on 10/01/2019 ) ? doxycycline monohydrate (MONODOX) 100 mg capsule TWICE A DAY ? SUMAtriptan (IMITREX) 100 mg tablet Take 1 tablet by mouth as needed. ? No current facility-administered medications on file prior to visit.? ? ALLERGIES ALLERGIES Allergen Reactions ? Adhesive Tape (Mesha* Intolerance ? ? Paper tape ? Latex ? Rash ? ? States hands break out when wearing latex gloves ? Nsaids (Non-Steroid* Other: See Comments ? ? Cannot take, hx of gastric bypass ? ? OBJECTIVE: ? VITALS: BP 120/74 ? Pulse 72 ? Resp 16 ? Ht 5' 8 (1.727 m) ? Wt 181 lb 9.6 oz (82.4 kg) ? LMP 11/13/2018 ? BMI 27.61 kg/m? ? ? HEENT: ?Normocephalic, atraumatic, Mucus membranes moist without lesions. ? NECK: ???Soft and Supple. ?No adenopathy , thyromegaly or bruits. ? SKIN: No lesions. ? CHEST: Clear to auscultation. ?No wheezes or rales. ?Good air exchange. ? HEART: Regular rate and rhythm ?No S3 or S4. ?No gallops or rubs. ? BACK: Nontender with no CVA tenderness. ? ABDOMEN: Soft, non-tender, non-distended, no masses, no hepatosplenomegaly. ? LOWER EXTREMITIES: There was no pitting edema, no palpable cords and no skin changes. ? ? ? ASSESSMENT:?Thickened endometrium on pelvic US in an postmenopausal woman without bleeding.? ? PLAN:?Discussed pelvic US with patient and need for endometrial sampling. Unable to complete endometrial biopsy given cervical stenosis. Discussed attempting again after cytotec. Reviewed hysteroscopy, D&C, possible polypectomy.?The rationale for the proposed surgery was discussed in addition to risks, benefits, and alternatives. ?General pre- and post-operative care was reviewed. ?Questions were answered. ?After discussion, the patient indicated a desire to proceed with the planned surgery. ? Millie Biggs,?DO
== END 2019-10-25 13:15 | disposition home or self-care (01) ==
LOC: SDC 08:40 → AC 08:40
PROVIDERS: Anesthesiology; PCP Family Medicine; Referring Provider Obstetrics & Gynecology; Visit Provider Obstetrics & Gynecology
PROC: 0UDB8ZZ Extraction of Endometrium, Via Natural or Artificial Opening Endoscopic (ICD-10-PCS; CPT 58558; principal; 2019-10-25 10:05)
DX: N85.01 Benign endometrial hyperplasia (principal); N88.2 Stricture and stenosis of cervix uteri; E11.9 Type 2 diabetes mellitus without complications; F32.9 Major depressive disorder, single episode, unspecified; E03.9 Hypothyroidism, unspecified; E78.2 Mixed hyperlipidemia; J45.909 Unspecified asthma, uncomplicated; I10 Essential (primary) hypertension; F17.210 Nicotine dependence, cigarettes, uncomplicated; Z11.59 Encounter for screening for other viral diseases; Z98.84 Bariatric surgery status; Z79.84 Long term (current) use of oral hypoglycemic drugs; Z79.51 Long term (current) use of inhaled steroids; Z79.899 Other long term (current) drug therapy
CPT/HCPCS: 00952; 58558; 36415; 81025; 82962; 85027; 86850; 86900; 86901; 87635; 88305; G2023; J7120; J2405; U0003

== ENCOUNTER 2020-02-05 03:20 | Observation (INO) | payer BC, SELFPAY ==
[2019-10-25 09:03] VITALS: BMI 26.4
--- NOTE | 2020-02-05 03:21 | EKG12_ITS ---
Test Reason : CP Blood Pressure : / mmHG Vent. Rate : 073 BPM Atrial Rate : 073 BPM P-R Int : 180 ms QRS Dur : 084 ms QT Int : 372 ms P-R-T Axes : 073 023 032 degrees QTc Int : 409 ms Suspect unspecified pacemaker failure Normal sinus rhythm Normal ECG Confirmed by TAHIRA SHI, SRINI ([id number]), newspaper photo editor LICHA WILLOUGHBY ([id number]) on 02/13/2020 8:47:31 AM Referred By: MR Confirmed By:SRINI HOFFMANN MD
--- NOTE | 2020-02-05 03:30 | EKG12_ITS ---
Test Reason : AM EKG Blood Pressure : / mmHG Vent. Rate : 054 BPM Atrial Rate : 054 BPM P-R Int : 180 ms QRS Dur : 086 ms QT Int : 420 ms P-R-T Axes : 078 039 065 degrees QTc Int : 398 ms Sinus bradycardia with marked sinus arrhythmia Nonspecific T wave abnormality Abnormal ECG Confirmed by FAUZIA SHI, NAVA ([id number]), website/blog editor PHILLIP GONZALEZ ([id number]) on 02/07/2020 2:01:17 PM Referred By: ERNESTINA Confirmed By:NAVA CAGE MD
--- NOTE | 2020-02-05 04:00 | RAD_ITS ---
STUDY: X-RAY CHEST REASON FOR EXAM: Female, 49 years old. CP TECHNIQUE: Frontal view COMPARISON: 02/05/2020 FINDINGS: Lungs are expanded. There are fibrotic changes at the LEFT lung base. There are NO acute infiltrates. There is a 2.8 cm opacity at the RIGHT lung base. Pulmonary mass not excluded. There is NO pleural effusion or pneumothorax. Normal size heart. Normal mediastinum and ankit. Normal visualized pulmonary arteries. Normal visualized aortic arch and descending thoracic aorta. Normal visualized thoracic spine. Normal visualized ribs, clavicles, and shoulders. There is no demonstrated abnormality of the visualized soft tissue structures of the upper abdomen. RAD/Chest 1 View IMPRESSION: There are fibrotic changes at the LEFT lung base. There are NO acute infiltrates. There is a 2.8 cm opacity at the RIGHT lung base. Pulmonary mass not excluded. There is NO pleural effusion or pneumothorax. Normal size heart. Electronically Signed: Bryce Lewis MD at 4:31 EDT , Service support ,
[2020-02-05 04:45] LABS: Anion Gap 6 (5-15); BUN 13 mg/dL (7-18); BUN/Creat Ratio 19.8 RATIO (10-20); Calcium,Total 8.6 mg/dL (8.5-10.1); Chloride 108 mmol/L (98-107); Creatinine, Serum 0.66 mg/dL (0.55-1.02); EST Glomerular Filtration Rate 102 mL/min (>60); Est Glom Filt Rate - Afr Amer 123 mL/min (>60); Glucose 119 mg/dL (74-106); Potassium 3.4 mmol/L (3.5-5.1); Sodium Level 143 mmol/L (136-145)
[2020-02-05 04:47] LABS: Absolute Lymphocyte Count 2.84 X10^3/uL (0.83-4.51); Absolute Neutrophil Count 5.5 X10^3/uL (2.0-7.7); Basophil# 0.08 X10^3/uL; Basophil% 0.9 % (0-1); Eosinophil# 0.22 X10^3/uL; Eosinophils% 2.4 % (0-5); Hematocrit 40.4 % (37-47); Hemoglobin 12.6 g/dL (12.0-15.0); Lymphocyte # 2.84 X10^3/ul (4.0); Lymphocyte % 31.3 % (19-41); Mean Corp Hgb Conc 31.2 g/dL (32-36); Mean Corpuscular Hgb 28.1 pg (27.0-32.0); Mean Platelet Vol. 10.9 fl (6.2-12.0); Monocyte# 0.45 X10^3/uL; NRBC Flagged by Analyzer 0 % (0-5); Neutrophil # 5.46 X10^3/uL (2.7-7.7); Neutrophil % 60.2 % (47-70); Platelet Count 263 K/mm3 (150-450); RBC Distribution Width CV 14.2 % (11.6-14.6); RBC Distribution Width SD 46.9 fl (35.1-43.9); Red Blood Count 4.49 M/mm3 (4.2-5.4)
[2020-02-05 04:49] LABS: White Blood Count 9.1 K/mm3 (4.4-11.0)
--- NOTE | 2020-02-05 05:06 | PCM.HP.STD ---
Problem List (1) Chronic back pain greater than 3 months duration Status: Chronic (2) Prediabetes Status: Chronic (3) Hypertension Status: Chronic (4) Hyperlipidemia Status: Chronic (5) Chest pain Status: Acute History of Present Illness Date of Admission: 02/05/20 Chief Complaint: chest pain The patient is a 49 year old female with a significant past medical history of smoking presents to the emergency room with sudden onset of chest pain from sleep. Onset was approximately 2 hours prior with substernal chest pain that awoke the patient from sleep. This pain was nonradiating in nature she was described as sharp and perhaps stabbing. She does associate the pain with shortness of breath. She states nitroglycerin did not improve the pain. No previous known history of NV. Chest x-ray reveals a 2.8 cm opacity at the right lung base as well as fibrotic change consistent with chronic lung disease. Initial laboratory studies are unremarkable. Patient will be admitted for observation to the progressive care unit for cardiac rule out and CT scan will be done to further characterize right lung base opacity. Past Medical History Past Medical History (Chronic Problems): Chronic Problems (Last Updated 10/23/19 @ 08:[address] Millie Biggs, DO) Chronic back pain greater than 3 months duration (Chronic) Obesity (BMI 35.0-39.9 without comorbidity) (Chronic) Lymphedema in adult patient (Chronic) Prediabetes (Chronic) Hypertension (Chronic) Hyperlipidemia (Chronic) Medical History: Medical History (Last Updated 10/23/19 @ 08:[address] Millie Biggs, DO) Asthma J45.909 DDD (degenerative disc disease), lumbar M51.36 Depression F32.9 Diabetes E11.9 Hypothyroid E03.9 Postoperative ileus K91.89, K56.7 Allergies adhesive Allergy (Verified 10/25/19 08:42) Unknown Latex, Natural Rubber Allergy (Verified 10/25/19 08:42) Unknown NSAIDS (Non-Steroidal Anti-Inflamma Allergy (Verified 10/25/19 08:42) Unknown Home Medications: Ambulatory Orders Medication Instructions Recorded Amitriptyline HCl 25 mg pe PO QHS 03/05/16 Atorvastatin Calcium [Lipitor] 40 mg PO QHS 03/05/16 Ferrous Sulfate 325 mg PO DAILY 03/05/16 Levothyroxine [Synthroid] 125 mcg PO DAILY 03/05/16 Metoprolol Tartrate [Lopressor 25 mg PO DAILY 03/05/16 (Beta Andrea)] Albuterol Sulfate [Ventolin Hfa] 1 puff INHALATION DAILY PRN 07/06/17 Cholecalciferol (Vitamin D3) 5,000 unit PO DAILY 07/06/17 [Vitamin D3] Cyanocobalamin (Vitamin B-12) 1,000 mcg PO DAILY 07/06/17 [Vitamin B-12] Sertraline HCl [Zoloft] 50 mg PO DAILY 07/06/17 Sumatriptan 100 mg PO PRN PRN 07/06/17 Topiramate [Topamax Sprinkle] 25 mg PO BID 07/06/17 metFORMIN HCl [Glucophage] 500 mg PO DAILY 07/06/17 Mometasone/Formoterol [Dulera 200 2 inh INHALATION Q4H PRN PRN 04/21/19 Mcg/5 Mcg Inhaler] Acetaminophen [Tylenol Extra 1,000 mg PO Q6H PRN PRN 10/18/19 Strength] Biotin 5 mg PO DAILY 10/18/19 Calcium Citrate/Vitamin D3 1 tab PO BID 10/18/19 [Calcium Citrate-Vit D3 Caplet] Duloxetine Hcl [Cymbalta] 60 mg PO DAILY 10/18/19 Multivitamin with Minerals 1 ea PO BID 10/18/19 [Multiple Vitamin] Polyethylene Glycol 3350 [Miralax] 17 gm PO DAILY PRN 10/18/19 Triamcinolone 0.1% Cream [Kenalog] 1 applic TOPICAL TID 10/18/19 metroNIDAZOLE 0.75% [Metrogel] 70 applic TOPICAL BID 10/18/19 Surgical History: Surgical History (Last Updated 10/23/19 @ 08:[address] Millie Biggs, DO) H/O foot surgery Z98.890 H/O hernia repair Z98.890, Z87.19 H/O laminectomy Z98.890 History of carpal tunnel repair Z98.890 History of gastric bypass Z98.84 History of total knee replacement Z96.659 Hx of tonsillectomy Z90.89 Surgical History: - - Gastric bypass surgery. back. spinal stimulator. Smoking Status: Current every day smoker - *Family History Maternal History Items: No pertinent history Review of Systems Constitutional: Denies: Chills, Fever, Weight Change HEENT: Denies: Head Aches, Sinus Congestion, Sinus Drainage Cardiovascular: Reports: Chest Pain. Denies: Palpitations Respiratory: Reports: Shortness of Breath. Denies: Cough, Sputum production Gastrointestinal: Denies: Abdominal Pain, Nausea, Vomiting Genitourinary: Denies: Dysuria Musculoskeletal: Denies: Joint Pain, Joint Tenderness Skin: Denies: Rash, Wounds Neurological: Denies: Numbness, Tingling, Focal weakness Psychiatric: Denies: Anxiety, Depression, Homicidal Ideations, Suicidal Ideations Hematologic/ Lymphatic: Denies: Easy Bruising, Easy Bleeding VTE Information - Inpt Only VTE Present on Admission: No VTE Mechan Device Prophylaxis: None VTE Pharm Prophylaxis ordered?: Yes Patient Problems: Active and Suspected Problems (Last Updated 10/23/19 @ 08:[address] Millie Biggs, DO) Chest pain (Acute) - Physical Exam Vitals/I&O's: Body Mass Index (BMI) 26.4 General: Alert, Oriented x3, Cooperative HEENT: Atraumatic, Normocephalic Neck: Supple, No JVD Lungs: Clear to auscultation, Normal air movement, No rhonchi, No wheeze, No rales Cardiovascular: Regular rate, Regular Rhythm, Normal S1, Normal S2, No murmurs Abdomen: Bowel Sounds Present, Soft, Non Tender Extremities: No edema Skin: No rashes Musculoskeletal: No Tenderness to Palpation of Joints or Extremities Neurological: Neuro grossly intact Psych/Mental Status: Normal Affect, Appropriate Laboratory Results 02/05/20 03:50: WBC 9.1, RBC 4.49, Hgb 12.6, Hct 40.4, MCV 90.0, MCH 28.1, MCHC 31.2 L, RDW Std Deviation 46.9 H, RDW Coeff of Elizabeth 14.2, Plt Count 263, MPV 10.9, Immature Gran % (Auto) 0.200, Neut % (Auto) 60.2, Lymph % (Auto) 31.3, [place] % (Auto) 5.0, Eos % (Auto) 2.4, Baso % (Auto) 0.9, Absolute Neuts (auto) 5.5, Absolute Lymphs (auto) 2.84, Nucleated RBC % 0 02/05/20 03:50: Sodium 143, Potassium 3.4 L, Chloride 108 H, Carbon Dioxide 29.0, Anion Gap 6, BUN 13, Creatinine 0.66, Est GFR (MDRD) Af Amer 123, Est GFR (MDRD) Non-Af 102, BUN/Creatinine Ratio 19.8, Glucose 119 H, Calcium 8.6, Troponin I < 0.015 Assessment/Plan All Active Problems (Last Updated 10/23/19 @ 08:[address] Millie Biggs, DO) Endometrial thickening on ultrasound (Acute) Chest pain (Acute) Chronic Problems (Last Updated 10/23/19 @ 08:[address] Millie Biggs, DO) Chronic back pain greater than 3 months duration (Chronic) Obesity (BMI 35.0-39.9 without comorbidity) (Chronic) Lymphedema in adult patient (Chronic) Prediabetes (Chronic) Hypertension (Chronic) Hyperlipidemia (Chronic) Plan 1. Chest pain?Place patient in progressive care unit, cycle cardiac enzymes, morphine, oxygen, nitroglycerin, aspirin per routine protocol, nuclear exercise stress test when appropriate. 2. Right lung base opacity?CT scan will be done to further characterize this area and go from there 3. Smoking?cessation encouraged 4. Hypertension?continue current medications monitor and perhaps will need further medication at discharge 5. Hyperlipidemia?continue statin medication 6. DVT prophylaxis?low molecular weight heparin OBSV E&M: [id number] Initial observation care L2
[2020-02-05 05:38] VITALS: BMI 26.4
[2020-02-05 05:39] VITALS: BP 139/71; PULSE 65; RESP 18; TEMP 36.6; O2SAT 100
[2020-02-05 05:46] VITALS: PULSE 66
[2020-02-05 06:13] VITALS: BMI 26.4
[2020-02-05] MEDS: Levothyroxine 125 MCG Tablet PO (06:16)
[2020-02-05] MEDS: Aspirin E.C. 325 MG Tablet PO (06:16)
[2020-02-05 06:40] LABS: Cholesterol 198 mg/dL (200); High Density Lipoprotein 49 mg/dL; Thyroid Stim Hormone (TSH) 5.06 uIU/mL (0.358-3.74); Triglycerides 169 mg/dL; Very Low Density Lipoprotein 34 mg/dL (5-40)
[2020-02-05 06:47] VITALS: PULSE 59
[2020-02-05 07:27] VITALS: PULSE 66; RESP 16; O2SAT 97
[2020-02-05] MEDS: Albuterol 2.5 MG/3 ML VIAL.NEB. INHALATION (07:27)
[2020-02-05] MEDS: Budesonide Respules 0.5 MG/2 ML AMPUL.NEB. INHALATION (07:27)
[2020-02-05 07:37] LABS: Magnesium 2.2 mg/dL (1.6-2.6)
[2020-02-05] MEDS: 0.9% Saline Lock 10 ML Syringe IV (07:47)
[2020-02-05] MEDS: Morphine 2 MG/ML Syringe IV (07:47)
[2020-02-05 08:01] LABS: T4 Free Direct 0.73 ng/dL (0.76-1.46)
--- NOTE | 2020-02-05 09:49 | STRESSREP ---
Stress Test Report Date: 02-05-2020 Procedure: Pharmacologic stress nuclear imaging study Indications: Chest pain Consent: Per the patient Procedure: The patient underwent pharmacologic (Regadenoson) evaluation with a peak heart rate of 97 beats per minute (56%predicted maximal heart rate) and a peak blood pressure of 140/82 mmHg. The baseline ECG demonstrated sinus bradycardia. The peak pharmacologic ECG demonstrated no obvious ECG changes. There were no cardiac dysrhythmias pretest, during pharmacologic infusion, or recovery. There was no complaint of chest discomfort during pharmacologic infusion or recovery. The examination was discontinued secondary to completion of protocol. Impression: 1. Pharmacologic (Regadenoson) evaluation 2. Peak pharmacologic ECG with no obvious ECG changes. 3. There were no cardiac dysrhythmias pretest, during pharmacologic infusion, or recovery. 4. Nuclear images pending Myocardial perfusion imaging study: Technique: The patient was injected with 11.2 millicuries of technetium 99m Cardiolite and subsequently rest SPECT Cardiolite nuclear imaging was obtained in the horizontal long, vertical long, and short axis views. The patient underwent pharmacologic (Regadenoson) evaluation with a peak heart rate of 97 beats per minute (56% percent predicted maximal heart rate) and a peak blood pressure of 140/82 mmHg. The patient was injected with 33.3 millicuries of technetium 99m Cardiolite and subsequently stress SPECT Cardiolite nuclear imaging was obtained in the horizontal long, vertical long, and short axis views. A gated Cardiolite study at peak stress was obtained. Interpretation: Rest and stress SPECT Cardiolite nuclear imaging status post realignment, normalization, and attenuation correction demonstrate relative uniform tracer uptake and myocardial perfusion appearing within normal limits. There is end systolic thickening and brightening. The gated Cardiolite study demonstrates myocardial thickening and inward wall motion. The reported LVEF is 70%. Impression: 1. Relative uniform tracer uptake and myocardial perfusion appearing within normal limits. 2. The gated Cardiolite study reports an LVEF of 70%. This note was generated with [employer] software. It may contain incorrect words, spelling, and punctuation that were not noted in checking the note before signing.
[2020-02-05 10:11] VITALS: BP 143/81; PULSE 74; RESP 18; TEMP 36.5; O2SAT 99
[2020-02-05 10:17] VITALS: BP 143/81; PULSE 74
[2020-02-05] MEDS: Metoprolol(XL)Succ 25 MG Tablet PO (10:17)
[2020-02-05] MEDS: Ferrous Sulfate 325 MG Tablet PO (10:17)
[2020-02-05] MEDS: DULoxetine Hcl 60 MG Capsule PO (10:18)
[2020-02-05] MEDS: Sertraline 50 MG Tablet PO (10:27)
[2020-02-05] MEDS: Insulin Lispro 100 UNIT/ML INSULN.PEN SC (10:30)
--- NOTE | 2020-02-05 10:45 | CT_ITS ---
STUDY: CTA CHEST REASON FOR EXAM: Female, 49 years old. OPACITY RT LUNG BASE, CP RADIATION DOSAGE (If Supplied By Facility): CTDIvol = ( 9.04 ) mGy, DLP = ( 258.99 ) mGycm TECHNIQUE: The examination was performed with the intravenous administration of IV 100mL Isovue-370. Post-processing of the angiographic images was performed, with multiplanar reformation and 3D reconstruction. Individualized dose optimization techniques were used for this CT. COMPARISON: Comparison is made with prior study dated 12/28/2010. FINDINGS: Normal enhancement of the main pulmonary artery and right and left pulmonary arteries. Normal enhancement of the bilateral peripheral pulmonary arteries. There is no demonstrated pulmonary embolism. Normal thoracic aorta and visualized great vessels. There is no demonstrated aortic dissection. Normal heart and pericardium. Normal mediastinum. Normal hilar regions. Normal visualized trachea and bronchi. Hyperinflation. Small left pleural effusion with left basilar atelectasis and/or infiltrate. Normal chest wall structures. There are degenerative changes of thoracic spine. Normal visualized upper abdomen. CT/CTA Chest W/WO Contrast IMPRESSION: Small left pleural effusion with left basilar atelectasis and/or infiltrate. No pulmonary mass lesion is seen. Electronically Signed: Gume Cazares, at 11:28 EDT , Service support ,
[2020-02-05 10:56] LABS: Bedside Glucose 173 mg/dL (70-110)
--- NOTE | 2020-02-05 11:20 | DCINST_ITS ---
- Discharge Diagnoses Current Active Problems: Current Active and Chronic Problems (Last Updated 10/23/19 @ 08:[address] Millie Biggs, DO) Chest pain (Acute) You will use the following diet at home:: Cardiac, Other Your liquids should be the consistency of: Regular/Thin Discharge Activity: Return to Normal Activity Call your doctor if you observe: Shortness of breath, Chest pain Allergies/Adverse Reactions: Allergies adhesive Allergy (Verified 10/25/19 08:42) Unknown Latex, Natural Rubber Allergy (Verified 10/25/19 08:42) Unknown NSAIDS (Non-Steroidal Anti-Inflamma Allergy (Verified 10/25/19 08:42) Unknown Medications to take at Discharge Amitriptyline HCl 25 mg pe PO QHS 03/05/16 Atorvastatin Calcium [Lipitor] 40 mg PO QHS 03/05/16 Ferrous Sulfate 325 mg PO DAILY 03/05/16 Levothyroxine [Synthroid] 125 mcg PO DAILY 03/05/16 Metoprolol Tartrate [Lopressor (beta jarret)] 25 mg PO DAILY 03/05/16 Albuterol Sulfate [Ventolin Hfa] 1 puff INHALATION DAILY PRN 07/06/17 Cholecalciferol (Vitamin D3) [Vitamin D3] 5,000 unit PO DAILY 07/06/17 Cyanocobalamin (Vitamin B-12) [Vitamin B-12] 1,000 mcg PO DAILY 07/06/17 Sertraline HCl [Zoloft] 50 mg PO DAILY 07/06/17 Sumatriptan 100 mg PO PRN PRN 07/06/17 Topiramate [Topamax Sprinkle] 25 mg PO BID 07/06/17 metFORMIN HCl [Glucophage] 500 mg PO DAILY 07/06/17 Mometasone/Formoterol [Dulera 200 Mcg-5 Mcg Inhaler] 2 inh INHALATION Q4H PRN PRN 04/21/19 Acetaminophen [Tylenol] 1,000 mg PO Q6H PRN PRN 10/18/19 Biotin 5 mg PO DAILY 10/18/19 Calcium Citrate/Vitamin D3 [Calcium Citrate-Vit D3 Caplet] 1 tab PO BID 10/18/19 Duloxetine Hcl [Cymbalta] 60 mg PO DAILY 10/18/19 Multivitamin with Minerals [Multiple Vitamin] 1 ea PO BID 10/18/19 Polyethylene Glycol 3350 [Miralax] 17 gm PO DAILY PRN 10/18/19 Triamcinolone 0.1% Cream [Kenalog] 1 applic TOPICAL TID 10/18/19 metroNIDAZOLE 0.75% [Metrogel Vaginal] 70 applic TOPICAL BID 10/18/19 Primary Care Physician: Jose Fishman MD [Primary Care Provider] - Please follow up with your Primary Care Physician in: 1-2 weeks Test Results: Test results from this visit will be discussed in further detail at your follow- up appointment, if applicable. Proposed Discharge Date: 02/05/20
--- NOTE | 2020-02-05 11:54 | PHA.DC.MR ---
Pharmacy Service has performed discharge medication reconciliation for this patient. The patient's discharge medication list was reviewed for discrepancies and discrepancies were resolved. Home Medications Amitriptyline HCl 25 mg pe PO QHS 03/05/16 Atorvastatin Calcium [Lipitor] 40 mg PO QHS 03/05/16 Ferrous Sulfate 325 mg PO DAILY 03/05/16 Metoprolol Tartrate [Lopressor (beta jarret)] 25 mg PO DAILY 03/05/16 Albuterol Sulfate [Ventolin Hfa] 1 puff INHALATION DAILY PRN 07/06/17 Cholecalciferol (Vitamin D3) [Vitamin D3] 5,000 unit PO DAILY 07/06/17 Cyanocobalamin (Vitamin B-12) [Vitamin B-12] 1,000 mcg PO DAILY 07/06/17 Sertraline HCl [Zoloft] 50 mg PO DAILY 07/06/17 Sumatriptan 100 mg PO PRN PRN 07/06/17 Topiramate [Topamax Sprinkle] 25 mg PO BID 07/06/17 metFORMIN HCl [Glucophage] 500 mg PO DAILY 07/06/17 Mometasone/Formoterol [Dulera 200 Mcg-5 Mcg Inhaler] 2 inh INHALATION Q4H PRN PRN 04/21/19 Acetaminophen [Tylenol] 1,000 mg PO Q6H PRN PRN 10/18/19 Biotin 5 mg PO DAILY 10/18/19 Calcium Citrate/Vitamin D3 [Calcium Citrate-Vit D3 Caplet] 1 tab PO BID 10/18/19 Duloxetine Hcl [Cymbalta] 60 mg PO DAILY 10/18/19 Multivitamin with Minerals [Multiple Vitamin] 1 ea PO BID 10/18/19 Polyethylene Glycol 3350 [Miralax] 17 gm PO DAILY PRN 10/18/19 Triamcinolone 0.1% Cream [Kenalog] 1 applic TOPICAL TID 10/18/19 metroNIDAZOLE 0.75% [Metrogel Vaginal] 70 applic TOPICAL BID 10/18/19 Levothyroxine [Synthroid] 137 mcg PO DAILY@0600 #30 tab 02/05/20
--- NOTE | 2020-02-05 12:07 | PCM.DC.SUM ---
Discharge Date and Diagnosis - Problem List Patient Problems: Active and Suspected Problems (Last Updated 10/23/19 @ 08:[address] Millie Biggs DO) Chest pain (Acute) Date of Admission: 02/05/20 Date of Discharge: 02/05/20 - Primary Discharge Diagnosis Acute Problems: Active Problems (Last Updated 10/23/19 @ 08:[address] Millie Biggs DO) Chest pain (Acute) - musculoskeletal - Secondary Discharge Diagnosis Chronic Problems: Chronic Problems (Last Updated 10/23/19 @ 08:[address] Millie Biggs DO) Chronic back pain greater than 3 months duration (Chronic) Obesity (BMI 35.0-39.9 without comorbidity) (Chronic) Lymphedema in adult patient (Chronic) Prediabetes (Chronic) Hypertension (Chronic) Hyperlipidemia (Chronic) Hospital Course and Treatment Imaging Results: DIAGNOSTICS: 02/05/20 05:55 Nuclear Stress Test - Chemical [NM] Routine Interpretation: Rest and stress SPECT Cardiolite nuclear imaging status post realignment, normalization, and attenuation correction demonstrate relative uniform tracer uptake and myocardial perfusion appearing within normal limits. There is end systolic thickening and brightening. The gated Cardiolite study demonstrates myocardial thickening and inward wall motion. The reported LVEF is 70%. Impression: 1. Relative uniform tracer uptake and myocardial perfusion appearing within normal limits. 2. The gated Cardiolite study reports an LVEF of 70%. 02/05/20 10:45 CTA Chest W/WO Contrast [CT] Urgent CT/CTA Chest W/WO Contrast IMPRESSION: Small left pleural effusion with left basilar atelectasis and/or infiltrate. No pulmonary mass lesion is seen. RAD/Chest 1 View IMPRESSION: There are fibrotic changes at the LEFT lung base. There are NO acute infiltrates. There is a 2.8 cm opacity at the RIGHT lung base. Pulmonary mass not excluded. There is NO pleural effusion or pneumothorax. Normal size heart. Operations: None Procedures: None Summary of Care Provided: Hospital Course: The patient is a 49 year old F with pmhx of HTN, HLD, and nicotine abuse who presented to the ER with c.o chest pain. This was midsternal to left sided pain that woke her up from sleep with associated SOB. Nitro provided no relief. She came to the ER and had negative EKG, negative trop, and CXR with questionable mass. The patient was admitted to the PCU on tele. No events on tele. Neg troponin x3. Stress test was negative. Her pain was reproducible with palpitations. CTA chest was obtained. No PE. No mass. Small pleural effusion with atelectasis vs infiltrate. Patient was discharged home in stable condition. Follow up with PCP in 1-2 weeks. This patient was seen by Vasyl Blair PA-C under the supervision of Dr. Avila. [] Patient Problems: Active and Suspected Problems (Last Updated 10/23/19 @ 08:[address] Millie Biggs, DO) Chest pain (Acute) - Physical Exam Vitals/I&O's: Vital Signs Temp Pulse Resp BP Pulse Ox 97.7 F L 74 18 143/81 H 99 02/05/20 10:11 02/05/20 10:17 02/05/20 10:11 02/05/20 10:17 02/05/20 10:11 Oxygen Delivery Method Room Air Weight: 173 lb 8.061 oz Body Mass Index (BMI) 26.4 General: Alert, Oriented x3, Cooperative HEENT: Atraumatic, PERRLA, EOMI, Normocephalic Neck: Supple, No JVD, Negative Carotid Bruits Lungs: Clear to auscultation, Normal air movement Cardiovascular: Regular rate, No murmurs Abdomen: Bowel Sounds Present, Soft, Non Tender Extremities: No edema, Capillary Refill Less than 3 Seconds Skin: No rashes, No breakdown Musculoskeletal: No Tenderness to Palpation of Joints or Extremities, - - chest pain on palpation Neurological: Cranial nerves II-XII grossly intact Psych/Mental Status: Normal Affect, Appropriate Laboratory Results 02/05/20 03:50: WBC 9.1, RBC 4.49, Hgb 12.6, Hct 40.4, MCV 90.0, MCH 28.1, MCHC 31.2 L, RDW Std Deviation 46.9 H, RDW Coeff of Elizabeth 14.2, Plt Count 263, MPV 10.9, Immature Gran % (Auto) 0.200, Neut % (Auto) 60.2, Lymph % (Auto) 31.3, [place] % (Auto) 5.0, Eos % (Auto) 2.4, Baso % (Auto) 0.9, Absolute Neuts (auto) 5.5, Absolute Lymphs (auto) 2.84, Nucleated RBC % 0 02/05/20 03:50: Sodium 143, Potassium 3.4 L, Chloride 108 H, Carbon Dioxide 29.0, Anion Gap 6, BUN 13, Creatinine 0.66, Est GFR (MDRD) Af Amer 123, Est GFR (MDRD) Non-Af 102, BUN/Creatinine Ratio 19.8, Glucose 119 H, Calcium 8.6, Troponin I < 0.015 02/05/20 03:50: Triglycerides 169, Cholesterol 198, LDL Cholesterol 115, VLDL Cholesterol 34, HDL Cholesterol 49, TSH 5.06 H 02/05/20 03:50: Free T4 0.73 L 02/05/20 03:50: Magnesium 2.2 02/05/20 06:40: Troponin I < 0.015 02/05/20 09:52: Troponin I < 0.015 02/05/20 10:25: POC Glucose 173 H Current Medications Acetaminophen (Tylenol) 1,000 mg PO Q6H PRN PRN PRN Reason: Pain (1-10) or Fever Albuterol Sulfate (Ventolin Aerosols) 2.5 mg INHALATION Q6HWA.RT [facility] Last Admin: 02/05/20 07:27 Dose: 2.5 mg Documented by: Amitriptyline HCl (Elavil) 25 mg PO QHS [facility] Aspirin (Ecotrin) 325 mg PO DAILY@0800 [facility] Last Admin: 02/05/20 06:16 Dose: 325 mg Documented by: Atorvastatin Calcium (Lipitor) 40 mg PO QHS [facility] Budesonide (Pulmicort Aerosol) 0.5 mg INHALATION Q12H.RT [facility] Last Admin: 02/05/20 07:27 Dose: 0.5 mg Documented by: Duloxetine HCl (Cymbalta) 60 mg PO DAILY [facility] Last Admin: 02/05/20 10:18 Dose: 60 mg Documented by: Enoxaparin Sodium (Lovenox) 40 mg SC DAILY [facility] Last Admin: 02/05/20 10:13 Dose: Not Given Documented by: Ferrous Sulfate (Ferrous Sulfate) 325 mg PO DAILY@1200 [facility] Last Admin: 02/05/20 10:17 Dose: 325 mg Documented by: Sodium Chloride () 250 mls @ 15 mls/hr IV .[id number] PRN PRN Reason: Saline Flush Sodium Chloride () 250 mls @ 15 mls/hr IV .[id number] PRN PRN Reason: Additional IVPB Infusion Insulin Human Lispro (Humalog Charlie[place] (Bkc)) 0 unit SC ACHS [facility]; Protocol Last Admin: 02/05/20 10:30 Dose: 1 unit Documented by: Levothyroxine Sodium (Synthroid) 137 mcg PO DAILY@0600 [facility] Metoprolol Succinate (Toprol Xl (Beta Andrea)) 25 mg PO DAILY [facility] Last Admin: 02/05/20 10:17 Dose: 25 mg Documented by: Morphine Sulfate () 2 mg IV Q3H PRN PRN PRN Reason: Pain Score 6-10/10 Last Admin: 02/05/20 07:47 Dose: 2 mg Documented by: Nitroglycerin (Nitrostat) 0.4 mg SUBLINGUAL Q5M PRN PRN Reason: CARDIAC/CHEST PAIN Ondansetron HCl (Zofran) 4 mg IV Q8H PRN PRN PRN Reason: NAUSEA/VOMITING Polyethylene Glycol (Miralax) 17 gm PO DAILY PRN PRN PRN Reason: Constipation Sertraline HCl (Zoloft) 50 mg PO DAILY [facility] Last Admin: 02/05/20 10:27 Dose: 50 mg Documented by: Sodium Chloride () 10 - 40 ml IV UD PRN PRN Reason: SALINE FLUSH Last Admin: 02/05/20 07:47 Dose: 10 ml Documented by: Discharge Diet: Low fat/ Low Cholesterol, 2000 mg Sodium Diet Discharge Activity: Return to Normal Activity Call your doctor if you observe: Shortness of breath, Chest pain Home Medications: Medications to take at Discharge Amitriptyline HCl 25 mg pe PO QHS 03/05/16 Atorvastatin Calcium [Lipitor] 40 mg PO QHS 03/05/16 Ferrous Sulfate 325 mg PO DAILY 03/05/16 Metoprolol Tartrate [Lopressor (beta andrea)] 25 mg PO DAILY 03/05/16 Albuterol Sulfate [Ventolin Hfa] 1 puff INHALATION DAILY PRN 07/06/17 Cholecalciferol (Vitamin D3) [Vitamin D3] 5,000 unit PO DAILY 07/06/17 Cyanocobalamin (Vitamin B-12) [Vitamin B-12] 1,000 mcg PO DAILY 07/06/17 Sertraline HCl [Zoloft] 50 mg PO DAILY 07/06/17 Sumatriptan 100 mg PO PRN PRN 07/06/17 Topiramate [Topamax Sprinkle] 25 mg PO BID 07/06/17 metFORMIN HCl [Glucophage] 500 mg PO DAILY 07/06/17 Mometasone/Formoterol [Dulera 200 Mcg-5 Mcg Inhaler] 2 inh INHALATION Q4H PRN PRN 04/21/19 Acetaminophen [Tylenol] 1,000 mg PO Q6H PRN PRN 10/18/19 Biotin 5 mg PO DAILY 10/18/19 Calcium Citrate/Vitamin D3 [Calcium Citrate-Vit D3 Caplet] 1 tab PO BID 10/18/19 Duloxetine Hcl [Cymbalta] 60 mg PO DAILY 10/18/19 Multivitamin with Minerals [Multiple Vitamin] 1 ea PO BID 10/18/19 Polyethylene Glycol 3350 [Miralax] 17 gm PO DAILY PRN 10/18/19 Triamcinolone 0.1% Cream [Kenalog] 1 applic TOPICAL TID 10/18/19 metroNIDAZOLE 0.75% [Metrogel Vaginal] 70 applic TOPICAL BID 10/18/19 Levothyroxine [Synthroid] 137 mcg PO DAILY@0600 #30 tab 02/05/20 Following Prescriptions Were Given to Patient: Levothyroxine [Synthroid] 137 mcg PO DAILY@0600 #30 tab Transmission Status: Received by [employer] #30 Primary Care Physician: Jose Fishman MD [Primary Care Provider] - Please follow up with your Primary Care Physician in: 1-2 weeks Disposition: Home Minutes spent on discharge:: 35 Patient Condition:: Stable Medical Necessity - Tobacco Use Smoking Status: Current every day smoker Meaningful Use Info Meaningful Use Diagnoses (Choose all that apply): None applicable
== END 2020-02-05 11:21 | disposition home or self-care (01) ==
LOC: PCU 07:01 → ED 07:12 → PCU 07:12
PROVIDERS: Admitting Provider Family Medicine; Emergency Provider Emergency Medicine; PCP Family Medicine; Visit Provider Family Medicine
DX: R07.89 Other chest pain (principal); E78.5 Hyperlipidemia, unspecified; I10 Essential (primary) hypertension; Z23 Encounter for immunization; G89.29 Other chronic pain; E03.9 Hypothyroidism, unspecified; F32.9 Major depressive disorder, single episode, unspecified; E11.9 Type 2 diabetes mellitus without complications; F17.200 Nicotine dependence, unspecified, uncomplicated; D64.9 Anemia, unspecified; J45.909 Unspecified asthma, uncomplicated; Z79.899 Other long term (current) drug therapy; Z79.84 Long term (current) use of oral hypoglycemic drugs; Z98.84 Bariatric surgery status
CPT/HCPCS: 36415; 71045; 71275; 78452; 80048; 80061; 82962; 83735; 84439; 84443; 84484; 85025; 93005; 93017; 94640; 96374; 99285; 99406; A9500; Q9967; 90686; A4216; J2785

== ENCOUNTER 2020-05-27 17:10 | Emergency (ER) | payer OTHER, SELFPAY ==
[2020-05-27 17:11] VITALS: BP 132/82; PULSE 92; RESP 16; TEMP 35.8; O2SAT 98; BMI 28.8
--- NOTE | 2020-05-27 17:59 | US_ITS ---
STUDY: VENOUS DOPPLER ULTRASOUND - LEFT LOWER EXTREMITY REASON FOR EXAM: Female, 49 years old. LT POSTERIOR AND LATERAL CALF PAIN AND SWELLING TECHNIQUE: Ultrasound evaluation of the deep vein system to include maciel-scale imaging and compression was performed. Maciel-scale imaging and Doppler sonographic evaluation, including duplex spectral analysis and qualitative color flow sonography, was performed. COMPARISON: None. FINDINGS: Common femoral, femoral and popliteal veins are patent with no evidence of luminal thrombus. Deep venous structures respond normally to compression and augmentation maneuvers. Normal color Doppler. Visualized calf veins are patent. US/Venous Duplex Imag/Limited/Uni IMPRESSION: Normal venous Doppler ultrasound of the lower extremity. Electronically Signed: Marylou Dasilva MD at 20:06 EST Tel , Service support ,
--- NOTE | 2020-05-27 18:29 | ED.DCSUM_ITS ---
History of Present Illness Chief Complaint: Lower Extremity Injury Informant: Patient Onset: Weeks Context: Sudden Onset Timing: Continuous Quality: Pain and swelling Location: Left calf Current Severity: Mild Maximum Severity: Moderate Worsened by: Movement Relieved by: Nothing Associated Symptoms: Nothing Narrative: Patient is a 49-year-old woman who injured her left lower extremity approximate 3 weeks ago. She not been as active. She presents now because of swelling and pain for the past week. She is concerned she has a blood clot. She denies chest pain or shortness of breath. She denies bruising easily. She denies paresthesia, anesthesia or motor weakness. She has no prior history of VTE. Prior similar symptoms: No Recent Illness/Hospitalization: No - Past Medical History (1) Hyperlipidemia Status: Chronic (2) Hypertension Status: Chronic (3) Lymphedema in adult patient Status: Chronic (4) Prediabetes Status: Chronic Past Medical History - Allergies and Home Meds Allergies/Adverse Reactions: Allergies adhesive Allergy (Verified 05/27/20 17:10) Unknown Latex, Natural Rubber Allergy (Verified 05/27/20 17:10) Unknown NSAIDS (Non-Steroidal Anti-Inflamma Allergy (Verified 05/27/20 17:10) Unknown Primary Care Physician: Jose Fishman MD [Primary Care Provider] - Prior records reviewed: Yes Surgical History: - - Gastric bypass surgery. back. spinal stimulator. Lives: Alone Smoking Status: Current every day smoker Alcohol: Rare Drugs: None - Family History Maternal Family History: Reports: No pertinent history Review of Systems General: Denies: Chills, Fever, Malaise, Subjective, Sweats Cardiovascular: Denies: Chest pain, Palpitations, Heart racing Respiratory: Denies: Dyspnea, Cough, Dyspnea on exertion Gastrointestinal: Denies: Abdominal pain, Nausea, Vomiting, Diarrhea, Melena, Hematochezia Genitourinary: Denies: Hematuria Musculoskeletal: Reports: Swelling, Extremity Pain. Denies: Myalgias, Arthralgias, Neck pain, Back pain Skin: Denies: Rash, Wounds Neurological: Denies: Weakness, Parasthesia, Numbness Endocrine: Denies: Polyuria, Polydipsia Hematologic: Denies: Easy bruising, Easy bleeding Physical Exam Vital Signs/Narrative: Vital Signs Temp Pulse Resp BP Pulse Ox 05/27/20 17:11 96.5 F L 92 16 132/82 H 98 Inital Vital Signs reviewed: Yes General: Well nourished, Well developed Head: Normocephalic, Atraumatic Eyes: Perrl, EOMI. Negative for: Pale conjunctiva, Scleral icterus Neck: Supple, Nontender, No lymphadenopathy Cardiovascular: Regular rate, Regular rhythm Respiratory: No distress Abdomen: Soft, Nontender, Nondistended, Normal bowel sounds Rectal: Deferred Extremities: Tenderness, Edema, Calf Tenderness. Negative for: Nontender, No edema Skin: Normal color, No rash, No Trauma. Negative for: Cyanosis, Diaphoresis, Jaundice Neurological: Alert, Oriented x3, Cranial nerves II-XII grossly intact, Normal Strength, Normal Sensation Psychological: Normal affect Diagnostic/Tx/Re-eval I was informed by the machine shop apprentice that there was no evidence of DVT. Patient was informed of results. Plan is to discharge to home. - Medical Decision Making With history of trauma 3 weeks prior pain for the past week with swelling. Wells score is 2. Venous duplex was ordered. ED Disposition - Plan for ED Patient: Disposition: Home or Assisted Living Diagnosis: Pain of left calf, Swelling of left lower extremity Instructions: ED Pain, Acute, Uncertain Cause, ED Peripheral Edema, Unilateral Referrals: Jose Fishman MD [Primary Care Provider] - 5-7 Days
== END 2020-05-27 20:00 | disposition home or self-care (01) ==
PROVIDERS: Emergency Provider Emergency Medicine; PCP Family Medicine
DX: M79.89 Other specified soft tissue disorders (principal); M79.662 Pain in left lower leg; E78.5 Hyperlipidemia, unspecified; I10 Essential (primary) hypertension; I89.0 Lymphedema, not elsewhere classified; F17.200 Nicotine dependence, unspecified, uncomplicated; Z88.6 Allergy status to analgesic agent; Z91.040 Latex allergy status; Z98.84 Bariatric surgery status; R73.03 Prediabetes
CPT/HCPCS: 93971; 99282

== ENCOUNTER 2020-11-11 19:09 | Emergency (ER) | payer OTHER, SELFPAY ==
[2020-11-11 19:10] VITALS: BP 151/107; PULSE 94; RESP 17; TEMP 36.4; O2SAT 96; BMI 26.2
--- NOTE | 2020-11-11 20:18 | EX.ED.VIS.HA ---
HPI History of Present Illness Chief Complaint: Headache Narrative Narrative: Patient with history of migraines presenting for headache which she describes as migrainous. She states it started about 440 today. She took 2 Tylenol without relief. She states she is out of abortive medication. She states that she does not have enough money to go to the doctor or to buy the medications. Patient states that she does have photophobia and phonophobia. Patient states that her headache is a little bit worse than usual. She denies a an acute onset headache. Patient denies fever or chills. [facility] Medical History Asthma DDD (degenerative disc disease), lumbar Depression Diabetes Hypothyroid Postoperative ileus Home Medications amitriptyline 25 mg pe PO QHS 03/05/16 [History Last Taken 02/04/20] atorvastatin 40 mg PO QHS 03/05/16 [History Last Taken 02/03/20] ferrous sulfate 325 mg PO DAILY 03/05/16 [History Last Taken 1 Day Ago ~11/17/18] metoprolol tartrate 25 mg PO DAILY 03/05/16 [History Last Taken 10/25/19 07:15 25 MG] Sumatriptan 100 mg PO PRN PRN 07/06/17 [History Last Taken 1 Day Ago ~11/17/18] albuterol sulfate [Ventolin HFA] 1 puff INHALATION DAILY PRN 07/06/17 [History Last Taken 10/25/19 07:15 1 PUFF] cholecalciferol (vitamin D3) 5,000 unit PO DAILY 07/06/17 [History Last Taken 2 Weeks Ago ~11/04/18] cyanocobalamin (vitamin B-12) 1,000 mcg PO DAILY 07/06/17 [History Last Taken 1 Day Ago ~11/17/18] metformin 500 mg PO DAILY 07/06/17 [History Last Taken 02/04/20] sertraline 50 mg PO DAILY 07/06/17 [History Last Taken 02/03/20] topiramate [Topamax] 25 mg PO BID 07/06/17 [History Last Taken 1 Day Ago ~11/17/18] mometasone-formoterol 2 inh INHALATION Q4H PRN PRN 04/21/19 [History Last Taken Unknown] Triamcinolone 0.1% Cream [Kenalog] 1 applic TOPICAL TID 10/18/19 [History Last Taken Unknown] acetaminophen 1,000 mg PO Q6H PRN PRN 10/18/19 [History Last Taken Unknown] biotin 5 mg PO DAILY 10/18/19 [History Last Taken Unknown] calcium citrate-vitamin D3 1 tab PO BID 10/18/19 [History Last Taken Unknown] duloxetine 60 mg PO DAILY 10/18/19 [History Last Taken Unknown] metronidazole 70 applic TOPICAL BID 10/18/19 [History Last Taken Unknown] multivitamin with minerals 1 ea PO BID 10/18/19 [History Last Taken Unknown] polyethylene glycol 3350 17 gm PO DAILY PRN 10/18/19 [History Last Taken Unknown] levothyroxine 137 mcg PO DAILY@0600 #30 tab 02/05/20 [Rx Last Taken Unknown] Allergy/AdvReac Type Severity Reaction Status Date / Time adhesive Allergy Unknown Verified 11/11/20 19:10 Latex, Natural Rubber Allergy Unknown Verified 11/11/20 19:10 NSAIDS (Non-Steroidal Allergy Unknown Verified 11/11/20 19:10 Anti-Inflamma Surgical History H/O foot surgery H/O hernia repair H/O laminectomy History of carpal tunnel repair History of gastric bypass History of total knee replacement Hx of tonsillectomy Social History Smoking Status: Current every day smoker tobacco type: cigarettes ROS ROS ED Constitutional Constitutional ED: Denies chills, fever(s) or sweats Eyes Eyes: Denies blurry vision or change in vision ENT ENT ED: Denies rhinorrhea or sore throat Cardiovascular Cardiovascular: Denies chest pain or palpitations Respiratory/Chest Respiratory/Chest: Denies cough, dyspnea or sputum Gastrointestinal Gastrointestinal: Reports nausea; Denies abdominal pain, constipation, diarrhea or vomiting Genitourinary Genitourinary ED: Denies dysuria or hematuria Neurologic Neurologic: Reports headache(s); Denies paresthesias or weakness Psychiatric Psychiatric: Denies anxiety or depression EXAM Physical Exam Const Vital Signs: 11/11/20 19:10 Temperature 97.6 F L Temperature Source Temporal Pulse Rate 94 Respiratory Rate 17 Blood Pressure 151/107 H Blood Pressure Mean 121 Pulse Ox 96 Oxygen Delivery Method Room Air Positive well nourished General Appearance ED: NAD HEENT Reports normocephalic Negative for tenderness Eyes EOMs intact bilaterally Neck no lymphadenopathy, supple and No no meningeal signs Resp normal respiratory effort and clear to auscultation bilaterally Cardio regular rate and regular rhythm Neuro oriented x3 and CN's II-XII intact bilaterally Sensorium / Orientation: awake and alert Psych mental status grossly normal Skin Lesions: no lesions Rashes: no rashes MDM MDM MDM Narrative Medical decision making narrative: Patient presented with migraine. She states it is 10 out of 10. She describes it slightly worse than previous. Patient was given Compazine and Benadryl and did have improvement in her pain. Her head CT is negative for acute findings. On reevaluation she feels comfortable being discharged home. Patient discharged home in stable condition. Impression: 1. Headache Radiography Diagnostic Testing: Radiology Impression Brain CT 11/11/20 21:04 IMPRESSION: No acute intracranial abnormality. Electronically Signed: Vignesh Haro MD at 21:22 EDT Tel , Service support , Discharge Plan Triage Chief Complaint: Headache ED Provider: Jonas Berry Dx/Rx/DC Orders Instructions: ED, Migraine (Classical) Prescriptions: No Action atorvastatin 40 MG tablet 40 mg PO QHS RF: 0 amitriptyline 25 MG tablet 25 mg pe PO QHS RF: 0 ferrous sulfate 325 MG tablet 325 mg PO DAILY RF: 0 metoprolol tartrate 25 MG tablet 25 mg PO DAILY RF: 0 metformin 500 MG tablet 500 mg PO DAILY RF: 0 topiramate [Topamax] 15 MG Cap.Sprink 25 mg PO BID RF: 0 albuterol sulfate [Ventolin HFA] 18 GM Hfa.Aer.Ad 1 puff inhalation DAILY PRN (Reason: Sob &/Or Wheezing) RF: 0 sertraline 50 MG tablet 50 mg PO DAILY RF: 0 cholecalciferol (vitamin D3) 5,000 UNIT capsule 5,000 unit PO DAILY RF: 0 cyanocobalamin (vitamin B-12) 1,000 MCG capsule 1,000 mcg PO DAILY RF: 0 Sumatriptan 100 MG tablet 100 mg PO PRN PRN (Reason: Headache) RF: 0 mometasone-formoterol 13 GM HFA aerosol inhaler 2 inh inhalation Q4H PRN PRN (Reason: Sob &/Or Wheezing) RF: 0 polyethylene glycol 3350 17 GM packet 17 gm PO DAILY PRN (Reason: Constipation) RF: 0 biotin 5 MG capsule 5 mg PO DAILY RF: 0 metronidazole 1 APPLIC gel 70 applic topical BID RF: 0 acetaminophen 500 MG tablet 1,000 mg PO Q6H PRN PRN (Reason: Pain Or Fever) RF: 0 multivitamin with minerals 1 EACH tablet 1 ea PO BID RF: 0 duloxetine 30 MG capsule 60 mg PO DAILY RF: 0 calcium citrate-vitamin D3 1 EACH tablet 1 tab PO BID RF: 0 Triamcinolone 0.1% Cream [Kenalog] 1 APPLIC Tube 1 applic topical TID RF: 0 levothyroxine 137 MCG tablet 137 mcg PO DAILY@0600 Qty: 30 RF: 0 Primary Care Provider: Jose Fishman Referrals: Jose Fishman MD [Primary Care Provider] - Disposition Disposition: Home, Self Care
[2020-11-11] MEDS: 0.9% Normal Saline 1,000 ML 999 ML IV (20:43)
[2020-11-11] MEDS: DiphenhydrAMINE 50 MG/ML Syringe 25 MG IV (20:43)
[2020-11-11] MEDS: proCHLORPERazine 10 MG/2 ML Vial IV (20:44)
--- NOTE | 2020-11-11 21:04 | CT_ITS ---
EXAMINATION : Head CT w/out contrast HISTORY : Pain COMPARISON : 11/24/2009. TECHNIQUE : Multiple contiguous axial images were obtained from the skull base to the vertex without intravenous contrast. A radiation dose optimization technique was used for this scan. FINDINGS : The ventricles and sulci are normal in size. There is no evidence for acute intracranial hemorrhage, mass effect, or midline shift. There is no extra-axial fluid collection. There is normal dixon-white differentiation, without CT evidence of acute ischemia or infarct. The skull base and calvarium are unremarkable. The orbits are unremarkable. The paranasal sinuses are clear. The mastoid air cells are well-aerated. The soft tissues are unremarkable. CT/Brain/Head without Contrast IMPRESSION: No acute intracranial abnormality. Electronically Signed: Vignesh Haro MD at 21:22 EDT Tel , Service support ,
[2020-11-11 21:47] VITALS: BP 132/104; PULSE 68; RESP 16; O2SAT 96
== END 2020-11-11 21:48 | disposition home or self-care (01) ==
PROVIDERS: Emergency Provider Student in an Organized Health Care Education/Training Program; PCP Family Medicine
DX: R51.9 Headache, unspecified (principal); E03.9 Hypothyroidism, unspecified; E11.9 Type 2 diabetes mellitus without complications; F32.9 Major depressive disorder, single episode, unspecified; J45.909 Unspecified asthma, uncomplicated; M51.36 Other intervertebral disc degeneration, lumbar region; Z79.1 Long term (current) use of non-steroidal anti-inflammatories (NSAID); F17.210 Nicotine dependence, cigarettes, uncomplicated; Z96.659 Presence of unspecified artificial knee joint; Z98.84 Bariatric surgery status; Z79.84 Long term (current) use of oral hypoglycemic drugs
CPT/HCPCS: 70450; 96361; 96374; 96375; 99283; J7030; A4216

== ENCOUNTER 2020-12-07 11:30 | Observation (INO) | payer OTHER, SELFPAY ==
[2020-12-07] VITALS (16 sets, daily range): BP systolic 125–147; BP diastolic 64–92; PULSE 68–100; RESP 14–20; TEMP 36.4–37.8; O2SAT 94–97; BMI 26.7; BMI 25.7
--- NOTE | 2020-12-07 12:01 | RAD_ITS ---
STUDY: X-RAY CHEST REASON FOR EXAM: Female, 50 years old. Shortness of breath TECHNIQUE: 02/05/20 COMPARISON: None. FINDINGS: The lungs are clear. There are no pleural effusions. There is no pneumothorax. The heart is normal in size. The visualized osseous structures are within normal limits. There is a spinal stimulator electrode in place. RAD/Chest 1 View (Portable) IMPRESSION: No acute thoracic pathology. Electronically Signed: Demond Keith MD at 13:11 EDT Tel , Service support ,
--- NOTE | 2020-12-07 12:03 | EDS_ITS ---
HPI History of Present Illness Chief Complaint: Shortness of Breath Informant: patient Narrative Narrative: Patient is a 50-year-old female who presents to the emergency department for cough, headache, fevers and chills. Her initial symptoms started this past Tuesday. She feels her cough is getting worse. No sputum production. No known sick contacts. She states she was vaccinated for Covid this June. No neck stiffness or rashes. She has been taking Tylenol for her temperature at home. The most that he got up to is 102.7. She denies any leg swelling or calf pain. She is a some day smoker. She denies chest pain. No abdominal pain nausea/vomiting or diarrhea. No urinary symptoms. [facility] Medical History Asthma DDD (degenerative disc disease), lumbar Depression Diabetes Hypothyroid Postoperative ileus Home Medications amitriptyline 25 mg pe PO QHS 03/05/16 [History Last Taken 02/04/20] atorvastatin 40 mg PO QHS 03/05/16 [History Last Taken 02/03/20] ferrous sulfate 325 mg PO DAILY 03/05/16 [History Last Taken 1 Day Ago ~11/17/18] metoprolol tartrate 25 mg PO DAILY 03/05/16 [History Last Taken 10/25/19 07:15 25 MG] Sumatriptan 100 mg PO PRN PRN 07/06/17 [History Last Taken 1 Day Ago ~11/17/18] albuterol sulfate [Ventolin HFA] 1 puff INHALATION DAILY PRN 07/06/17 [History Last Taken 10/25/19 07:15 1 PUFF] cholecalciferol (vitamin D3) 5,000 unit PO DAILY 07/06/17 [History Last Taken 2 Weeks Ago ~11/04/18] cyanocobalamin (vitamin B-12) 1,000 mcg PO DAILY 07/06/17 [History Last Taken 1 Day Ago ~11/17/18] metformin 500 mg PO DAILY 07/06/17 [History Last Taken 02/04/20] sertraline 50 mg PO DAILY 07/06/17 [History Last Taken 02/03/20] topiramate [Topamax] 25 mg PO BID 07/06/17 [History Last Taken 1 Day Ago ~11/17/18] mometasone-formoterol 2 inh INHALATION Q4H PRN PRN 04/21/19 [History Last Taken Unknown] Triamcinolone 0.1% Cream [Kenalog] 1 applic TOPICAL TID 10/18/19 [History Last Taken Unknown] acetaminophen 1,000 mg PO Q6H PRN PRN 10/18/19 [History Last Taken Unknown] biotin 5 mg PO DAILY 10/18/19 [History Last Taken Unknown] calcium citrate-vitamin D3 1 tab PO BID 10/18/19 [History Last Taken Unknown] duloxetine 60 mg PO DAILY 10/18/19 [History Last Taken Unknown] metronidazole 70 applic TOPICAL BID 10/18/19 [History Last Taken Unknown] multivitamin with minerals 1 ea PO BID 10/18/19 [History Last Taken Unknown] polyethylene glycol 3350 17 gm PO DAILY PRN 10/18/19 [History Last Taken Unknown] levothyroxine 137 mcg PO DAILY@0600 #30 tab 02/05/20 [Rx Last Taken Unknown] cyclobenzaprine 10 mg PO TID 12/07/20 [History Last Taken Unknown] fluticasone propionate INTRANASAL 12/07/20 [History Last Taken Unknown] prednisone 40 mg PO DAILY 12/07/20 [History Last Taken Unknown] Allergy/AdvReac Type Severity Reaction Status Date / Time adhesive Allergy Unknown Verified 12/07/20 11:30 Latex, Natural Rubber Allergy Unknown Verified 12/07/20 11:30 NSAIDS (Non-Steroidal Allergy Unknown Verified 12/07/20 11:30 Anti-Inflamma Surgical History H/O foot surgery H/O hernia repair H/O laminectomy History of carpal tunnel repair History of gastric bypass History of total knee replacement Hx of tonsillectomy Social History Smoking Status: Current every day smoker tobacco type: cigarettes ROS ROS ED Constitutional Constitutional ED: Reports chills and fever(s) Eyes Eyes: Denies change in vision ENT ENT ED: Denies epistaxis or rhinorrhea Cardiovascular Cardiovascular: Denies chest pain or palpitations Respiratory/Chest Respiratory/Chest: Reports cough and dyspnea; Denies sputum Gastrointestinal Gastrointestinal: Denies abdominal pain, diarrhea, nausea or vomiting Genitourinary Genitourinary ED: Denies dysuria, hematuria or urinary frequency Musculoskeletal Musculoskeletal: Denies back pain or neck pain Integumentary Denies rash Neurologic Neurologic: Reports headache(s); Denies dizziness or weakness EXAM Physical Exam Const Vital Signs: 12/07/20 11:31 12/07/20 11:33 12/07/20 11:40 Temperature 99.5 F H 99.5 F H Temperature Source Temporal Temporal Pulse Rate 95 95 Respiratory Rate 16 16 Respiratory Effort Normal Non-Labored Respiratory Depth Normal Respiratory Pattern Normal Blood Pressure 127/86 H 127/86 H Blood Pressure Mean 99 99 Pulse Ox 95 95 Oxygen Delivery Method Room Air Room Air 12/07/20 12:10 12/07/20 14:10 12/07/20 14:36 Temperature Temperature Source Pulse Rate 87 79 100 Respiratory Rate 20 H 16 20 H Respiratory Effort Respiratory Depth Respiratory Pattern Blood Pressure 137/70 H Blood Pressure Mean 92 Pulse Ox 94 Oxygen Delivery Method Room Air 12/07/20 15:34 12/07/20 16:00 12/07/20 17:29 Temperature 100.0 F H 100.0 F H 99.1 F Temperature Source Oral Oral Temporal Pulse Rate 91 88 80 Respiratory Rate 18 17 15 Respiratory Effort Respiratory Depth Respiratory Pattern Blood Pressure 136/76 H 146/74 H 133/82 H Blood Pressure Mean 96 98 99 Pulse Ox 95 95 94 Oxygen Delivery Method Room Air Room Air Room Air 12/07/20 17:40 Temperature 99.1 F Temperature Source Temporal Pulse Rate 99 Respiratory Rate 19 H Respiratory Effort Respiratory Depth Respiratory Pattern Blood Pressure 133/82 H Blood Pressure Mean 99 Pulse Ox 95 Oxygen Delivery Method Positive well nourished and well developed General Appearance ED: well developed and NAD HEENT Reports normocephalic and head/scalp atraumatic Negative for trauma Eyes PERRL and EOMs intact bilaterally Neck supple General: Negative for tenderness Chest Wall inspection of chest normal Resp normal respiratory effort Auscultation: wheezes expiratory wheezes and throughout Cardio regular rate, regular rhythm and no murmurs GI normal to inspection, nondistended, normoactive bowel sounds and non-tender Palpation: soft; Negative for guarding or rebound tenderness present Back/Spine no CVA tenderness Extremity normal to inspection General Extremety ED: Negative for edema or tenderness General Extremity: Negative for edema Neuro CN's II-XII intact bilaterally and no sensory deficits noted Sensorium / Orientation: alert Motor Exam: strength 5/5 throughout Psych mental status grossly normal Skin no rashes or lesions noted MDM MDM MDM Narrative Medical decision making narrative: Patient presents to the emergency department for cough and shortness of breath. On arrival to the ED she is in no acute distress. She has no increased work of breathing. She is satting 95% on room air. She does have bilateral expiratory wheezes on examination. We will treat this symptomatically with a DuoNeb. Will check x-ray and Covid swab. Patient's x-ray interpreted by myself. Clear lung ward bilaterally. No consolidation or effusion noted. Normal cardiac silhouette. Agree with radiologist interpretation. Patient's work-up did not reveal a high white blood cell count. She is not anemic. No significant electrolyte disturbance. Troponin within normal limits. Her rapid Covid is negative. We did attempt to ambulate the patient to make sure she did not desaturate but had significant weakness and was unable to get to the toilet by herself. Given her weakness will bring her to the hospital for further evaluation and management as she is not safe to care for self now currently. She understands and is agreeable with this plan. Lab Data Labs: Laboratory Results - last 24 hr 12/07/20 12/07/20 12/07/20 15:30 15:30 17:10 WBC 8.3 RBC 4.87 Hgb 13.4 Hct 42.6 MCV 87.5 MCH 27.5 MCHC 31.5 L RDW Std Deviation 45.5 H RDW Coeff of Elizabeth 14.2 Plt Count 259 MPV 11.0 Immature Gran % (Auto) 0.400 Neut % (Auto) 92.4 H Lymph % (Auto) 5.2 L Gila % (Auto) 1.6 Eos % (Auto) 0.0 Baso % (Auto) 0.4 Absolute Neuts (auto) 7.7 Absolute Lymphs (auto) 0.43 L Nucleated RBC % 0 Differential Comment SCANNED Platelet Estimate ADEQUATE RBC Morphology NORM C+C Sodium 140 Potassium 3.7 Chloride 108 H Carbon Dioxide 28.0 Anion Gap 4 L BUN 6 L Creatinine 0.70 Estim Creat Clear Calc 96.99 Est GFR (MDRD) Af Amer 113 Est GFR (MDRD) Non-Af 94 BUN/Creatinine Ratio 8.5 L Glucose 149 H Calcium 8.8 Total Bilirubin 0.30 AST 11 L ALT 17 Alkaline Phosphatase 93 Troponin I High Sens 6.2 Total Protein 7.8 Albumin 3.8 Globulin 4.0 Albumin/Globulin Ratio 1.0 COVID-19 (ROGER) Negative Radiography Diagnostic Testing: Radiology Impression Chest X-Ray 12/07/20 12:01 IMPRESSION: No acute thoracic pathology. Electronically Signed: Demond Keith MD at 13:11 EDT Tel , Service support , EKG Initial EKG: Attestation: I personally reviewed and interpreted this EKG as follows: (Rate of 97 bpm and normal sinus rhythm. Normal intervals. Normal axis. No significant ST elevations or depressions.) Discharge Plan Dx/Rx/DC Orders Clinical Impression: Generalized weakness, URI (upper respiratory infection), Cough Disposition Disposition: Acute Care Hospital [facility] Discharge Date/Time: 12/07/20 18:36
[2020-12-07] MEDS: Ipratropium/Albuterol Sulfate 3 ML AMPUL.NEB INHALATION ×4 (12:10→23:20)
--- NOTE | 2020-12-07 15:09 | EKG12_ITS ---
Test Reason : Blood Pressure : / mmHG Vent. Rate : 097 BPM Atrial Rate : 097 BPM P-R Int : 154 ms QRS Dur : 078 ms QT Int : 360 ms P-R-T Axes : 058 022 058 degrees QTc Int : 457 ms Sinus rhythm with occasional Premature ventricular complexes Cannot rule out Inferior infarct , age undetermined Abnormal ECG Confirmed by TAHIRA SHI, SRINI ([id number]), video tape editor CHINMAY COELLO ([id number]) on 12/09/2020 9:44:58 AM Referred By: TIFFANIE Confirmed By:SRINI HOFFMANN MD
--- NOTE | 2020-12-07 15:10 | ED.RN ---
PT AMBULATED AND PULSE OX WAS SATISFACTORY BUT PT VERY SHAKY AND WEAK. PT BECAME DIZZY AND LIGHTHEADED. PHYSICIAN NOTIFIED
[2020-12-07 15:45] LABS: Absolute Lymphocyte Count 0.43 X10^3/uL (0.83-4.51); Absolute Neutrophil Count 7.7 X10^3/uL (2.0-7.7); Basophil# 0.03 X10^3/uL; Basophil% 0.4 % (0-1); Hematocrit 42.6 % (37-47); Hemoglobin 13.4 g/dL (12.0-15.0); Lymphocyte # 0.43 X10^3/ul (0.83-4.51); Lymphocyte % 5.2 % (19-41); Mean Corp Hgb Conc 31.5 g/dL (32-36); Mean Corpuscular Hgb 27.5 pg (27.0-32.0); Mean Corpuscular Volume 87.5 fL (81-99); Monocyte# 0.13 X10^3/uL; Monocyte% 1.6 % (0-10); NRBC Flagged by Analyzer 0 % (0-5); Neutrophil # 7.69 X10^3/uL (2.7-7.7); Neutrophil % 92.4 % (47-70); POSITIVE DIFFERENTIAL YES; Platelet Count 259 K/mm3 (150-450); RBC Distribution Width CV 14.2 % (11.6-14.6); RBC Distribution Width SD 45.5 fl (35.1-43.9); Red Blood Count 4.87 M/mm3 (4.2-5.4); White Blood Count 8.3 K/mm3 (4.4-11.0)
[2020-12-07 16:12] LABS: AST(SGOT) 11 U/L (15-37); Alanine Aminotransfer ALT/SGPT 17 U/L (13-56); Albumin, Serum 3.8 g/dL (3.2-5.0); Alkaline Phosphatase 93 U/L (45-117); Anion Gap 4 (5-15); BUN 6 mg/dL (7-18); BUN/Creat Ratio 8.5 RATIO (10-20); Calcium,Total 8.8 mg/dL (8.5-10.1); Chloride 108 mmol/L (98-107); EST Glomerular Filtration Rate 94 mL/min (>60); Est Glom Filt Rate - Afr Amer 113 mL/min (>60); Estimated Creatinine Clearance 96.99 ml/min; Glucose 149 mg/dL (74-106); Potassium 3.7 mmol/L (3.5-5.1); Protein, Total 7.8 g/dL (6.4-8.2); Sodium Level 140 mmol/L (136-145); Troponin-I HS 6.2 pg/mL (3.0-53.7)
[2020-12-07 16:23] LABS: Differential Indicated SCAN CRITERIA MET
[2020-12-07 16:24] LABS: Platelet Estimate ADEQUATE (ADEQ); Red Cell Morphology NORM C+C NORMAL (NORM C&C)
[2020-12-07 16:25] LABS: Differential Comment SCANNED
[2020-12-07] MEDS: Acetaminophen 325 MG Tablet 650 MG PO ×2 (16:53→23:27)
--- NOTE | 2020-12-07 17:57 | PCM.HP.STD ---
HPI - General General Date of Admission: 12/07/20 HPI Narrative HARRY MCCRARY, is a 50 F who came to ER with worsening cough, shortness of breath and wheezing for last 3 days. She also had fever and chills at home. Cough is mainly dry. She has history of asthma and her last exacerbation was about a year ago. She never had Covid and had Covid vaccination last June. She has mild diffuse chest tightness. 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 She had PFT long time ago probably more than 5 years ago. She is on Dulera inhaler on baseline along with albuterol as needed. In ER, twelve-lead EKG shows normal sinus rhythm 85 bpm, QTC 440 ms. Chest x-ray does not show acute change. Labs reviewed. Family history, father had asthma too. [facility] Medical History Asthma DDD (degenerative disc disease), lumbar Depression Diabetes Hypothyroid Postoperative ileus Home Medications amitriptyline 25 mg pe PO QHS 03/05/16 [History Last Taken 02/04/20] atorvastatin 40 mg PO QHS 03/05/16 [History Last Taken 02/03/20] ferrous sulfate 325 mg PO DAILY 03/05/16 [History Last Taken 1 Day Ago ~11/17/18] metoprolol tartrate 25 mg PO DAILY 03/05/16 [History Last Taken 10/25/19 07:15 25 MG] Sumatriptan 100 mg PO PRN PRN 07/06/17 [History Last Taken 1 Day Ago ~11/17/18] albuterol sulfate [Ventolin HFA] 1 puff INHALATION DAILY PRN 07/06/17 [History Last Taken 10/25/19 07:15 1 PUFF] cholecalciferol (vitamin D3) 5,000 unit PO DAILY 07/06/17 [History Last Taken 2 Weeks Ago ~11/04/18] cyanocobalamin (vitamin B-12) 1,000 mcg PO DAILY 07/06/17 [History Last Taken 1 Day Ago ~11/17/18] metformin 500 mg PO DAILY 07/06/17 [History Last Taken 02/04/20] sertraline 50 mg PO DAILY 07/06/17 [History Last Taken 02/03/20] topiramate [Topamax] 25 mg PO BID 07/06/17 [History Last Taken 1 Day Ago ~11/17/18] mometasone-formoterol 2 inh INHALATION Q4H PRN PRN 04/21/19 [History Last Taken Unknown] Triamcinolone 0.1% Cream [Kenalog] 1 applic TOPICAL TID 10/18/19 [History Last Taken Unknown] acetaminophen 1,000 mg PO Q6H PRN PRN 10/18/19 [History Last Taken Unknown] biotin 5 mg PO DAILY 10/18/19 [History Last Taken Unknown] calcium citrate-vitamin D3 1 tab PO BID 10/18/19 [History Last Taken Unknown] duloxetine 60 mg PO DAILY 10/18/19 [History Last Taken Unknown] metronidazole 70 applic TOPICAL BID 10/18/19 [History Last Taken Unknown] multivitamin with minerals 1 ea PO BID 10/18/19 [History Last Taken Unknown] polyethylene glycol 3350 17 gm PO DAILY PRN 10/18/19 [History Last Taken Unknown] levothyroxine 137 mcg PO DAILY@0600 #30 tab 02/05/20 [Rx Last Taken Unknown] cyclobenzaprine 10 mg PO TID 12/07/20 [History Last Taken Unknown] fluticasone propionate INTRANASAL 12/07/20 [History Last Taken Unknown] prednisone 40 mg PO DAILY 12/07/20 [History Last Taken Unknown] Allergy/AdvReac Type Severity Reaction Status Date / Time adhesive Allergy Unknown Verified 12/07/20 11:30 Latex, Natural Rubber Allergy Unknown Verified 12/07/20 11:30 NSAIDS (Non-Steroidal Allergy Unknown Verified 12/07/20 11:30 Anti-Inflamma Surgical History H/O foot surgery H/O hernia repair H/O laminectomy History of carpal tunnel repair History of gastric bypass History of total knee replacement Hx of tonsillectomy Social History Smoking Status: Current every day smoker tobacco type: cigarettes ROS ROS Narrative Constitutional: Shortness of breath, reports fatigue and weakness HEENT: Reports systems reviewed and no addt'l complaints, except as documented Respiratory/Chest: shortness of breath at rest, worse on exertion. Gastrointestinal: Denies coffee ground emesis, hematemesis or vomiting Genitourinary: Denies burning urination or new lower related symptoms Musculoskeletal: Reports joint pain and limited range of motion Neurologic: Denies seizure-like activity skin: No ulcer. No rash Endocrinology: Diabetes mellitus type 2, hyperglycemia. Reports systems reviewed and no addt'l complaints, except as documented Hematologic/Lymphatic: Reports systems reviewed and no addt'l complaints, except as documented Rest 12 ROS are negative except as mentioned in HPI Vital Signs Vital Signs Vital Signs: 12/07/20 11:31 12/07/20 11:33 12/07/20 11:40 Temperature 99.5 F H 99.5 F H Temperature Source Temporal Temporal Pulse Rate 95 95 Respiratory Rate 16 16 Respiratory Effort Normal Non-Labored Respiratory Depth Normal Respiratory Pattern Normal Blood Pressure 127/86 H 127/86 H Blood Pressure Mean 99 99 Pulse Ox 95 95 Oxygen Delivery Method Room Air Room Air 12/07/20 12:10 12/07/20 14:10 12/07/20 14:36 Temperature Temperature Source Pulse Rate 87 79 100 Respiratory Rate 20 H 16 20 H Respiratory Effort Respiratory Depth Respiratory Pattern Blood Pressure 137/70 H Blood Pressure Mean 92 Pulse Ox 94 Oxygen Delivery Method Room Air 12/07/20 15:34 12/07/20 16:00 12/07/20 17:29 Temperature 100.0 F H 100.0 F H 99.1 F Temperature Source Oral Oral Temporal Pulse Rate 91 88 80 Respiratory Rate 18 17 15 Respiratory Effort Respiratory Depth Respiratory Pattern Blood Pressure 136/76 H 146/74 H 133/82 H Blood Pressure Mean 96 98 99 Pulse Ox 95 95 94 Oxygen Delivery Method Room Air Room Air Room Air 12/07/20 17:40 Temperature 99.1 F Temperature Source Temporal Pulse Rate 99 Respiratory Rate 19 H Respiratory Effort Respiratory Depth Respiratory Pattern Blood Pressure 133/82 H Blood Pressure Mean 99 Pulse Ox 95 Oxygen Delivery Method Weight Weight: 175 lb 14.862 oz Body Mass Index (BMI) 26.7 Physical Exam Narrative General: Alert, Oriented x3, Cooperative HEENT: Atraumatic, PERRLA, EOMI, Normocephalic Oral: Oral mucosa dry. No Gingival or Mucosal Lesions/ Ulcerations Neck: Supple, No JVD, Negative Carotid Bruits Lungs: Air entry severely diminished in all lung ward bilaterally. Bilateral expiratory wheezing present. Dyspnea at rest. Cardiovascular: Regular rate, Regular Rhythm, Normal S1, Normal S2, No murmurs Abdomen: Bowel Sounds Present, Soft, Non Tender, Non-Distended : No renal angle tenderness. No suprapubic tenderness. Extremities: No edema, Capillary Refill Less than 3 Seconds Skin: No rashes, No breakdown Musculoskeletal: No Tenderness to Palpation of Joints or Extremities Neurological: Cranial nerves II-XII grossly intact, Deep Tendon Reflexes 2+/4 and Symmetrical, Neuro grossly intact Psych/Mental Status: Anxious looking. Results Lab / Micro Data Result Diagrams: 12/07/20 15:30 12/07/20 15:30 Labs: Laboratory Results - last 24 hr 12/07/20 15:30: WBC 8.3, RBC 4.87, Hgb 13.4, Hct 42.6, MCV 87.5, MCH 27.5, MCHC 31.5 L, RDW Std Deviation 45.5 H, RDW Coeff of Elizabeth 14.2, Plt Count 259, MPV 11.0, Immature Gran % (Auto) 0.400, Neut % (Auto) 92.4 H, Lymph % (Auto) 5.2 L, Garvin % (Auto) 1.6, Eos % (Auto) 0.0, Baso % (Auto) 0.4, Absolute Neuts (auto) 7.7, Absolute Lymphs (auto) 0.43 L, Nucleated RBC % 0, Differential Comment SCANNED, Platelet Estimate ADEQUATE, RBC Morphology NORM C+C 12/07/20 15:30: Sodium 140, Potassium 3.7, Chloride 108 H, Carbon Dioxide 28.0, Anion Gap 4 L, BUN 6 L, Creatinine 0.70, Estim Creat Clear Calc 96.99, Est GFR (MDRD) Af Amer 113, Est GFR (MDRD) Non-Af 94, BUN/Creatinine Ratio 8.5 L, Glucose 149 H, Calcium 8.8, Total Bilirubin 0.30, AST 11 L, ALT 17, Alkaline Phosphatase 93, Troponin I High Sens 6.2, Total Protein 7.8, Albumin 3.8, Globulin 4.0, Albumin/Globulin Ratio 1.0 Micro: Microbiology 12/07/20 12:05 Mucosa - Nose SARS-CoV-2 Antigen (Rapid) - Final Radiology Impression Chest X-Ray 12/07/20 12:01 IMPRESSION: No acute thoracic pathology. Electronically Signed: Demond Keith MD at 13:11 EDT Tel , Service support , Assessment & Plan Assessment/Plan (1) Asthma exacerbation: QUALIFIERS: Asthma severity: severe PLAN: This 50-year-old female admitted with shortness of breath cough and fever for last 3 days. 1. Acute asthma exacerbation probably from viral bronchitis: Patient is being admitted in [facility]. Bronchodilator DuoNeb every 4 hourly, IV Solu-Medrol, Zithromax, Mucinex along with incentive spirometry and PEP. Respiratory panel ordered. COVID-19 PCR is pending. Advised PFT as an outpatient. IV fluid half-normal saline at 75 mill per hour for 1 L. 2. Diabetes mellitus type 2 with hyperglycemia: Accu-Chek before meals and at bedtime and cover with Humalog sliding scale. Hold Metformin. 3. Hypertension: Blood pressure is controlled. 4. Chronic back pain 5. Dyslipidemia and hypothyroidism: Home medication reconciliation done. VTE prophylaxis: Moderate risk. On Lovenox 40 subcu daily Living will/advanced directive/end of life care: Patient does not have living will or advanced directive. After discussion of benefits/risks procedures involved with full code, DNR CC arrest and DNR CC, the patient opted for full code. Patient does want artificial life support including intubation, tube feed, ventilator and/chest compression, central venous catheter, vasopressor and DC shock if needed Total time spent in [id number] encounter in discussion of advanced directive 16 minutes. Charges/Coding Visit Charges OBSV E&M: 66893 Initial observation care L3 Procedures Hospitalists Procedures: 87968 Advncd Care Plan 30 Min
[2020-12-07 18:52] LABS: Probe Check PASS; Specimen Processing Control PASS
[2020-12-07] MEDS: Enoxaparin 40 MG/0.4 ML Syringe SC (19:04)
[2020-12-07] MEDS: 0.45% Normal Saline 1,000 ML 75 ML IV (19:04)
[2020-12-07] MEDS: Azithromycin 250 MG Tablet 500 MG PO (19:05)
[2020-12-07] MEDS: guaiFENesin 1,200 MG Tablet 1200 MG PO (20:56)
[2020-12-07] MEDS: Amitriptyline 25 MG Tablet PO (20:56)
[2020-12-07] MEDS: Atorvastatin Calcium 40 MG Tablet PO (20:57)
[2020-12-07] MEDS: Insulin Lispro 100 UNIT/ML INSULN.PEN SC (21:09)
[2020-12-07] MEDS: 0.9% Saline Lock 10 ML Syringe IV (21:13)
[2020-12-07 22:11] LABS: Bedside Glucose 272 mg/dL (70-110)
[2020-12-08 03:22] VITALS: BP 133/71; PULSE 67; RESP 18; TEMP 36.4; O2SAT 94
[2020-12-08 06:17] LABS: Absolute Lymphocyte Count 0.78 X10^3/uL (0.83-4.51); Absolute Neutrophil Count 6.7 X10^3/uL (2.0-7.7); Basophil# 0.01 X10^3/uL; Basophil% 0.1 % (0-1); Hematocrit 38.4 % (37-47); Hemoglobin 11.8 g/dL (12.0-15.0); Lymphocyte # 0.78 X10^3/ul (0.83-4.51); Lymphocyte % 10.2 % (19-41); Mean Corp Hgb Conc 30.7 g/dL (32-36); Mean Corpuscular Volume 87.9 fL (81-99); Mean Platelet Vol. 11.4 fl (6.2-12.0); Monocyte# 0.13 X10^3/uL; Monocyte% 1.7 % (0-10); NRBC Flagged by Analyzer 0 % (0-5); Neutrophil # 6.73 X10^3/uL (2.7-7.7); Neutrophil % 87.6 % (47-70); Platelet Count 215 K/mm3 (150-450); RBC Distribution Width CV 14.1 % (11.6-14.6); RBC Distribution Width SD 45.6 fl (35.1-43.9); Red Blood Count 4.37 M/mm3 (4.2-5.4); White Blood Count 7.7 K/mm3 (4.4-11.0)
[2020-12-08] MEDS: Levothyroxine 137 MCG Tablet PO (06:45)
[2020-12-08] MEDS: Insulin Lispro 100 UNIT/ML INSULN.PEN SC ×2 (06:50→11:22)
[2020-12-08] MEDS: 0.9% Saline Lock 10 ML Syringe IV ×3 (06:50→12:35)
[2020-12-08 07:01] LABS: Bedside Glucose 163 mg/dL (70-110)
[2020-12-08 07:03] VITALS: PULSE 76; RESP 18; O2SAT 96
[2020-12-08] MEDS: Ipratropium/Albuterol Sulfate 3 ML AMPUL.NEB INHALATION (07:03)
[2020-12-08 07:08] LABS: Anion Gap 4 (5-15); BUN 11 mg/dL (7-18); BUN/Creat Ratio 26.3 RATIO (10-20); Calcium,Total 8.6 mg/dL (8.5-10.1); Chloride 106 mmol/L (98-107); Creatinine, Serum 0.42 mg/dL (0.55-1.02); EST Glomerular Filtration Rate 170 mL/min (>60); Est Glom Filt Rate - Afr Amer 206 mL/min (>60); Estimated Creatinine Clearance 161.65 ml/min; Glucose 170 mg/dL (74-106); Magnesium 2.2 mg/dL (1.6-2.6); Potassium 3.9 mmol/L (3.5-5.1); Sodium Level 137 mmol/L (136-145); Thyroid Stim Hormone (TSH) 0.53 uIU/mL (0.358-3.74)
[2020-12-08 08:03] VITALS: BP 142/68; PULSE 75; RESP 18; TEMP 36.9; O2SAT 97
--- NOTE | 2020-12-08 09:14 | PCM.DC.SUM ---
Providers Date of Admission: 12/07/20 Primary Care Physician: Dr. Jose Fishman MD Reason For Visit: ASTHMA EXACERBATION Diagnosis Discharge Diagnosis (1) Asthma exacerbation: Status: Acute Code(s): J45.901 - Unspecified asthma with (acute) exacerbation Qualifiers: Asthma severity: severe Medications at Discharge Home Medications amitriptyline 25 mg pe PO QHS 03/05/16 atorvastatin 40 mg PO QHS 03/05/16 ferrous sulfate 325 mg PO DAILY 03/05/16 metoprolol tartrate 25 mg PO DAILY 03/05/16 Sumatriptan 100 mg PO PRN PRN 07/06/17 albuterol sulfate [Ventolin HFA] 1 puff INHALATION DAILY PRN 07/06/17 cholecalciferol (vitamin D3) 5,000 unit PO DAILY 07/06/17 cyanocobalamin (vitamin B-12) 1,000 mcg PO DAILY 07/06/17 metformin 500 mg PO DAILY 07/06/17 sertraline 50 mg PO DAILY 07/06/17 topiramate [Topamax] 25 mg PO BID 07/06/17 mometasone-formoterol 2 inh INHALATION Q4H PRN PRN 04/21/19 Triamcinolone 0.1% Cream [Kenalog] 1 applic TOPICAL TID 10/18/19 acetaminophen 1,000 mg PO Q6H PRN PRN 10/18/19 biotin 5 mg PO DAILY 10/18/19 calcium citrate-vitamin D3 1 tab PO BID 10/18/19 duloxetine 60 mg PO DAILY 10/18/19 metronidazole 70 applic TOPICAL BID 10/18/19 multivitamin with minerals 1 ea PO BID 10/18/19 polyethylene glycol 3350 17 gm PO DAILY PRN 10/18/19 levothyroxine 137 mcg PO DAILY@0600 #30 tab 02/05/20 cyclobenzaprine 10 mg PO TID 12/07/20 fluticasone propionate INTRANASAL 12/07/20 prednisone 40 mg PO DAILY 12/07/20 azithromycin 500 mg PO Q24 #6 tab 12/08/20 Hospital Course Summary of Care Provided Minutes Spent on Discharge: 35 Hospital Course: Patient is a 50-year-old lady with history of bronchial asthma admitted with shortness of breath and cough over 3 days 1. Acute asthma exacerbation ?Thought to be brought on by infectious bronchitis. Admitted to regular nursing floor managed with Solu-Medrol, Zithromax as well as bronchodilator treatment 2. Diabetes mellitus type II -patient's oral hypoglycemics held. Placed on Accu-Cheks a.c. and at bedtime and covered with sliding scale insulin 3. Hypertension - Blood pressure controlled, home medications continued with dose adjustment as needed 4. Hypothyroidism - Patient is on levothyroxine home dose continued Physical Exam Narrative GENERAL: cooperative HEENT: Atraumatic; EYES; Anicteric, Normal Conjunctiva NECK; supple, normal thyroid, RESPIRATORY: Diminished to auscultation CARDIOVASCULAR: Regular S1 S2, GI: soft, normoactive bowel sounds, : No Renal angle tenderness; EXTREMITIES: No edema, no clubbing, MUSCULOSKELETAL: no muscle waisting NEURO: Awake; no lateralizing signs. SKIN: No Rash PSYCH; Flat affect Weight / BMI Weight Weight: 77.02 kg Body Mass Index (BMI) 25.7 ABG / Lab / Microbiology Data Result Diagrams: 12/08/20 05:45 12/08/20 05:45 Laboratory: Laboratory Results - last 24 hr 12/07/20 15:30: WBC 8.3, RBC 4.87, Hgb 13.4, Hct 42.6, MCV 87.5, MCH 27.5, MCHC 31.5 L, RDW Std Deviation 45.5 H, RDW Coeff of Elizabeth 14.2, Plt Count 259, MPV 11.0, Immature Gran % (Auto) 0.400, Neut % (Auto) 92.4 H, Lymph % (Auto) 5.2 L, [place] % (Auto) 1.6, Eos % (Auto) 0.0, Baso % (Auto) 0.4, Absolute Neuts (auto) 7.7, Absolute Lymphs (auto) 0.43 L, Nucleated RBC % 0, Differential Comment SCANNED, Platelet Estimate ADEQUATE, RBC Morphology NORM C+C 12/07/20 15:30: Sodium 140, Potassium 3.7, Chloride 108 H, Carbon Dioxide 28.0, Anion Gap 4 L, BUN 6 L, Creatinine 0.70, Estim Creat Clear Calc 96.99, Est GFR (MDRD) Af Amer 113, Est GFR (MDRD) Non-Af 94, BUN/Creatinine Ratio 8.5 L, Glucose 149 H, Calcium 8.8, Total Bilirubin 0.30, AST 11 L, ALT 17, Alkaline Phosphatase 93, Troponin I High Sens 6.2, Total Protein 7.8, Albumin 3.8, Globulin 4.0, Albumin/Globulin Ratio 1.0 12/07/20 17:10: COVID-19 ([facility]) Negative 12/07/20 21:08: POC Glucose 272 H 12/08/20 05:45: WBC 7.7, RBC 4.37, Hgb 11.8 L, Hct 38.4, MCV 87.9, MCH 27.0, MCHC 30.7 L, RDW Std Deviation 45.6 H, RDW Coeff of Elizabeth 14.1, Plt Count 215, MPV 11.4, Immature Gran % (Auto) 0.400, Neut % (Auto) 87.6 H, Lymph % (Auto) 10.2 L, [place] % (Auto) 1.7, Eos % (Auto) 0.0, Baso % (Auto) 0.1, Absolute Neuts (auto) 6.7, Absolute Lymphs (auto) 0.78 L, Nucleated RBC % 0 12/08/20 05:45: Sodium 137, Potassium 3.9, Chloride 106, Carbon Dioxide 27.0, Anion Gap 4 L, BUN 11, Creatinine 0.42 L, Estim Creat Clear Calc 161.65, Est GFR (MDRD) Af Amer 206, Est GFR (MDRD) Non-Af 170, BUN/Creatinine Ratio 26.3 H, Glucose 170 H, Calcium 8.6, Magnesium 2.2, TSH 0.53 12/08/20 06:47: POC Glucose 163 H Microbiology: Microbiology 12/07/20 19:42 Interface Orders Respiratory Panel (PCR) - Final 12/07/20 12:05 Mucosa - Nose SARS-CoV-2 Antigen (Rapid) - Final Radiography Diagnostic Testing: Radiology Impression Chest X-Ray 12/07/20 12:01 IMPRESSION: No acute thoracic pathology. Electronically Signed: Demond Keith MD at 13:11 EDT Tel , Service support , D/C Instructions Discharge Diet: 2000 Calorie Control Diet Discharge Activity: Return to Normal Activity Call your doctor if you observe: Fever of 101 or Higher, Shortness of breath, Fainting spells and Chest pain Meaningful Use Info Meaningful Use Diagnoses (Choose all that apply): None applicable Discharge Plan Admission Admit Date/Time: 12/07/20 17:55 Primary Reason for Your Visit: Asthma Attending Provider: Semaj Frazier Primary Care Provider: Jose Fishman Instructions Patient Instructions: ED Chest Pain, Noncardiac, Asthma Discharge Orders/Prescriptions Prescriptions: New azithromycin 250 mg Tablet 500 mg PO Q24 Qty: 6 RF: 0 Continued atorvastatin 40 MG tablet 40 mg PO QHS RF: 0 amitriptyline 25 MG tablet 25 mg pe PO QHS RF: 0 ferrous sulfate 325 MG tablet 325 mg PO DAILY RF: 0 metoprolol tartrate 25 MG tablet 25 mg PO DAILY RF: 0 metformin 500 MG tablet 500 mg PO DAILY RF: 0 topiramate [Topamax] 15 MG capsule, sprinkle 25 mg PO BID RF: 0 albuterol sulfate [Ventolin HFA] 18 GM HFA aerosol inhaler 1 puff inhalation DAILY PRN (Reason: Sob &/Or Wheezing) RF: 0 sertraline 50 MG tablet 50 mg PO DAILY RF: 0 cholecalciferol (vitamin D3) 5,000 UNIT capsule 5,000 unit PO DAILY RF: 0 cyanocobalamin (vitamin B-12) 1,000 MCG capsule 1,000 mcg PO DAILY RF: 0 Sumatriptan 100 MG tablet 100 mg PO PRN PRN (Reason: Headache) RF: 0 mometasone-formoterol 13 GM HFA aerosol inhaler 2 inh inhalation Q4H PRN PRN (Reason: Sob &/Or Wheezing) RF: 0 polyethylene glycol 3350 17 GM packet 17 gm PO DAILY PRN (Reason: Constipation) RF: 0 biotin 5 MG capsule 5 mg PO DAILY RF: 0 metronidazole 1 APPLIC gel 70 applic topical BID RF: 0 acetaminophen 500 MG tablet 1,000 mg PO Q6H PRN PRN (Reason: Pain Or Fever) RF: 0 multivitamin with minerals 1 EACH tablet 1 ea PO BID RF: 0 duloxetine 30 MG capsule 60 mg PO DAILY RF: 0 calcium citrate-vitamin D3 1 EACH tablet 1 tab PO BID RF: 0 Triamcinolone 0.1% Cream [Kenalog] 1 APPLIC Tube 1 applic topical TID RF: 0 levothyroxine 137 MCG tablet 137 mcg PO DAILY@0600 Qty: 30 RF: 0 cyclobenzaprine 10 mg tablet 10 mg PO TID RF: 0 prednisone 20 mg tablet 40 mg PO DAILY RF: 0 fluticasone propionate 50 mcg/actuation spray,suspension INTRANASAL RF: 0 Referrals / Follow Up: Jose Fishman MD [Primary Care Provider] - In 1 Week Disposition Disposition (needs filled in before D/C Order can be placed): Home, Self Care Charges/Coding Visit Charges OBSV E&M: 33764 Observation care discharge
[2020-12-08] MEDS: Sertraline 50 MG Tablet PO (09:58)
[2020-12-08] MEDS: Azithromycin 250 MG Tablet 500 MG PO (09:58)
[2020-12-08] MEDS: guaiFENesin 1,200 MG Tablet 1200 MG PO (09:59)
[2020-12-08] MEDS: Cholecalciferol (VIT D3) 25 MCG TABLET (1,000 UNITS) 125 MCG PO (09:59)
[2020-12-08] MEDS: DULoxetine Hcl 60 MG Capsule PO (09:59)
[2020-12-08] MEDS: Ferrous Sulfate 325 MG Tablet PO (09:59)
[2020-12-08] MEDS: Enoxaparin 40 MG/0.4 ML Syringe SC (10:00)
[2020-12-08 11:36] LABS: Bedside Glucose 204 mg/dL (70-110)
[2020-12-08 12:50] VITALS: BP 144/79; PULSE 75; RESP 16; TEMP 36.7; O2SAT 96
== END 2020-12-08 12:50 | disposition home or self-care (01) ==
LOC: ED 12:51 → MS3 18:01
PROVIDERS: Admitting Provider Internal Medicine; Emergency Provider Emergency Medicine; PCP Family Medicine; Visit Provider Internal Medicine
DX: J45.901 Unspecified asthma with (acute) exacerbation (principal); I10 Essential (primary) hypertension; E03.9 Hypothyroidism, unspecified; F17.210 Nicotine dependence, cigarettes, uncomplicated; M51.36 Other intervertebral disc degeneration, lumbar region; E78.5 Hyperlipidemia, unspecified; G89.29 Other chronic pain; R94.31 Abnormal electrocardiogram [ECG] [EKG]; F32.9 Major depressive disorder, single episode, unspecified; E11.65 Type 2 diabetes mellitus with hyperglycemia; Z79.899 Other long term (current) drug therapy; Z79.84 Long term (current) use of oral hypoglycemic drugs; Z79.52 Long term (current) use of systemic steroids; Z98.84 Bariatric surgery status
CPT/HCPCS: 36415; 71045; 80048; 80053; 82962; 83735; 84443; 84484; 85025; 87426; 87633; 87635; 93005; 94640; 94667; 96361; 96372; 96374; 96376; 99218; 99251; 99285; 99406; U0005; A4216; G0378; G0463; U0003